=== PATIENT | female | born 1990 | race Hispanic/Latino ===

== ENCOUNTER 2022-07-18 12:03 | Inpatient (IN) | payer SELFPAY ==
[2022-07-18 14:39] LABS: #Basophils 0.1 thou/uL (0.0-0.2); #Eosinphils 0.2 thou/uL (0.0-0.7); #Lymphocytes 1.8 thou/uL (1.20-3.40); #Monocytes 0.3 thou/uL (0.11-0.59); #Neutrophils 9.4 thou/uL (1.40-6.50); %Basophils 0.5 % (0.0-1.0); %Eosinophils 1.9 % (0.0-10.0); %Lymphocytes 15.5 % (21.0-51.0); %Monocytes 2.6 % (0.0-10.0); %Neutrophils 79.6 % (42.0-75.0); Hemoglobin 6.7 g/dL (12.0-16.0); Mean Corpuscular HGB CONC 36.7 g/dL (32.0-36.0); Mean Corpuscular Hemoglobin 33.6 pg (27.0-31.0); Mean Corpuscular Volume 91.6 fl (78.0-98.0); Mean Platelet Volume 7.2 fL (7.4-10.4); Platelet Count 257 10x3/uL (130-400); RBC Distribution Width 11.2 % (11.5-14.5); Red Blood Cell (RBC) Count 1.99 mill/uL (4.20-5.40); White Blood Cell (WBC) Count 11.8 10x3/uL (4.8-10.8)
[2022-07-18 14:50] LABS: BHCG - Serum Negative (NEGATIVE); Pregs Control Background? CLEAR/WHITE (CLR/WHITE); Pregs Control Bar Appear? YES (CONTROL BAR)
[2022-07-18 14:59] LABS: ALT (SGPT) Less than 7 U/L (8-55); AST (SGOT) 8 U/L (5-34); Albumin 3.9 g/dL (3.5-5.0); Alkaline Phosphatase 79 U/L (40-110); Anion Gap 22 mmol/L (10-20); BUN (Urea Nitrogen) 101 mg/dL (7.0-18.7); Bilirubin, Total 0.4 mg/dL (0.2-1.2); Calc. Creatinine Clearance 0 mL/min (70-130); Calcium 7.8 mg/dL (7.8-10.44); Carbon Dioxide 13 mmol/L (22-29); Chloride 107 mmol/L (98-107); Estimated GFR 3; Globulin 3.3 g/dL (2.4-3.5); Glucose 95 mg/dL (70-105); Lipase 82 U/L (8-78); Potassium 5.5 mmol/L (3.5-5.1); Protein, Total 7.2 g/dL (6.0-8.3); Sodium 136 mmol/L (136-145)
[2022-07-18 18:54] LABS: Bilirubin Negative (Negative); Blood, Urine 3+ (Negative); Clarity Clear (Clear); Glucose, Urine (Dipstick) Normal (Negative); Ketone, Urine Negative (Negative); Leukocyte 25 Leu/uL (Negative); Nitrite Negative (Negative); Protein, Urine (Dipstick) 300 mg/dL (Neg-Trace); RBC/HPF Greater than 50 HPF (0-3); Squamous Epithelial 0-3 HPF (0-3); Urobilinogen Normal mg/dL (Less than 2)
[2022-07-18 18:55] LABS: Bacteria/HPF 1+ HPF (None Seen)
[2022-07-18 18:59] LABS: Amphetamine Not Detected (NotDetected); Barbiturates Screen Not Detected (NotDetected); Benzodiazepine Screen Not Detected (NotDetected); Cocaine Metabolite Screen Not Detected (NotDetected); Methadone Not Detected (NotDetected); Methamphetamine Not Detected (NotDetected); Opiate Screen Not Detected (NotDetected); Oxycodone Screen Not Detected (NotDetected); Phencyclidine (PCP) Not Detected (NotDetected); THC/Cannabinoid Screen Not Detected (NotDetected); Tricyclic Screen Not Detected (NotDetected)
[2022-07-18 21:20] VITALS: BMI 35.1
[2022-07-18] MEDS: Sodium Bicarbonate 150 MEQ in Dextrose 5% in Water 1,000 ML IV SCH (22:11)
[2022-07-18 22:14] LABS: #Basophils 0.1 thou/uL (0.0-0.2); #Eosinphils 0.2 thou/uL (0.0-0.7); #Lymphocytes 2.2 thou/uL (1.20-3.40); #Monocytes 0.4 thou/uL (0.11-0.59); #Neutrophils 6.8 thou/uL (1.40-6.50); %Basophils 0.7 % (0.0-1.0); %Lymphocytes 22.7 % (21.0-51.0); %Monocytes 4.6 % (0.0-10.0); %Neutrophils 70.1 % (42.0-75.0); Hemoglobin 5.9 g/dL (12.0-16.0); Mean Corpuscular HGB CONC 35.8 g/dL (32.0-36.0); Mean Corpuscular Volume 92.4 fl (78.0-98.0); Mean Platelet Volume 7.6 fL (7.4-10.4); Platelet Count 222 10x3/uL (130-400); RBC Distribution Width 11.4 % (11.5-14.5); Red Blood Cell (RBC) Count 1.77 mill/uL (4.20-5.40); White Blood Cell (WBC) Count 9.8 10x3/uL (4.8-10.8)
[2022-07-18 22:29] LABS: ALT (SGPT) 7 U/L (8-55); AST (SGOT) 7 U/L (5-34); Albumin 3.5 g/dL (3.5-5.0); Alkaline Phosphatase 70 U/L (40-110); Anion Gap 21 mmol/L (10-20); BUN (Urea Nitrogen) 98 mg/dL (7.0-18.7); Bilirubin, Total 0.5 mg/dL (0.2-1.2); Calc. Creatinine Clearance 7 mL/min (70-130); Calcium 7.6 mg/dL (7.8-10.44); Carbon Dioxide 13 mmol/L (22-29); Chloride 110 mmol/L (98-107); Estimated GFR 3; Glucose 83 mg/dL (70-105); Protein, Total 6.5 g/dL (6.0-8.3); Sodium 139 mmol/L (136-145)
[2022-07-18] MEDS ORDERED: NIFEdipine XL 60 MG TAB PO SCH (22:30)
[2022-07-18] MEDS ORDERED: Sodium Bicarb 50 MEQ/50 ML VIAL IVP SCH (23:00)
[2022-07-18 23:23] LABS: Creatinine, Urine 64.49 mg/dL (47-110)
[2022-07-19 06:58] LABS: #Eosinphils 0.3 thou/uL (0.0-0.7); #Lymphocytes 2.4 thou/uL (1.20-3.40); #Monocytes 0.5 thou/uL (0.11-0.59); #Neutrophils 5.9 thou/uL (1.40-6.50); %Lymphocytes 25.9 % (21.0-51.0); %Neutrophils 64.7 % (42.0-75.0); Hemoglobin 6.6 g/dL (12.0-16.0); Mean Corpuscular HGB CONC 33.9 g/dL (32.0-36.0); Mean Corpuscular Hemoglobin 30.6 pg (27.0-31.0); Mean Corpuscular Volume 90.3 fl (78.0-98.0); Mean Platelet Volume 7.5 fL (7.4-10.4); Platelet Count 225 10x3/uL (130-400); RBC Distribution Width 11.6 % (11.5-14.5); Red Blood Cell (RBC) Count 2.15 mill/uL (4.20-5.40)
[2022-07-19 07:01] LABS: INR-International Normal Ratio 1.2; Prothrombin Time 15.7 sec (12.0-14.7)
[2022-07-19 07:02] LABS: PTT 30.1 sec (22.9-36.1)
[2022-07-19 07:10] LABS: Albumin 3.4 g/dL (3.5-5.0); Anion Gap 22 mmol/L (10-20); BUN (Urea Nitrogen) 94 mg/dL (7.0-18.7); BUN/Creatinine Ratio 6.23; Calc. Creatinine Clearance 7 mL/min (70-130); Calcium 7.3 mg/dL (7.8-10.44); Carbon Dioxide 18 mmol/L (22-29); Chloride 105 mmol/L (98-107); Estimated GFR 3; Glucose 99 mg/dL (70-105); Phosphorus 8.1 mg/dL (2.3-4.7); Potassium 3.6 mmol/L (3.5-5.1); Sodium 141 mmol/L (136-145)
[2022-07-19] MEDS: NIFEdipine XL 60 MG TAB PO SCH (08:57)
[2022-07-19] MEDS: Famotidine/PF 20 mg/2ml Vial SLOW IVP SCH (08:57)
[2022-07-19 09:37] LABS: Iron 161 ug/dL (50-170); Iron Binding Capacity, Total 235 mcg/dL (265-497)
[2022-07-19] MEDS ORDERED: EPOETIN ALFA-EPBX (ESRD) 4,000 UNITS/ML VIAL SC SCH (17:00)
[2022-07-19] MEDS ORDERED: EPOETIN ALFA-EPBX (ESRD) 2,000 UNITS/ML VIAL SC SCH (17:15)
[2022-07-19] MEDS: Ondansetron PF 4 MG/2 ML Vial IVP PRN (21:31)
[2022-07-20] MEDS: Sodium Bicarbonate 150 MEQ in Dextrose 5% in Water 1,000 ML IV SCH (01:25)
[2022-07-20 07:05] LABS: #Basophils 0.1 thou/uL (0.0-0.2); #Eosinphils 0.4 thou/uL (0.0-0.7); #Lymphocytes 3.5 thou/uL (1.20-3.40); #Monocytes 0.5 thou/uL (0.11-0.59); #Neutrophils 7.9 thou/uL (1.40-6.50); %Basophils 0.6 % (0.0-1.0); %Eosinophils 3.5 % (0.0-10.0); %Lymphocytes 28.2 % (21.0-51.0); %Monocytes 3.9 % (0.0-10.0); %Neutrophils 63.9 % (42.0-75.0); Hemoglobin 9.9 g/dL (12.0-16.0); Mean Corpuscular HGB CONC 36.3 g/dL (32.0-36.0); Mean Corpuscular Hemoglobin 29.9 pg (27.0-31.0); Mean Corpuscular Volume 82.5 fl (78.0-98.0); Mean Platelet Volume 8.1 fL (7.4-10.4); Platelet Count 247 10x3/uL (130-400); RBC Distribution Width 20.1 % (11.5-14.5); White Blood Cell (WBC) Count 12.3 10x3/uL (4.8-10.8)
[2022-07-20 07:25] LABS: INR-International Normal Ratio 1.1; Prothrombin Time 14.2 sec (12.0-14.7)
[2022-07-20 07:26] LABS: PTT 27.8 sec (22.9-36.1)
[2022-07-20 07:30] LABS: Albumin 3.8 g/dL (3.5-5.0); Anion Gap 21 mmol/L (10-20); BUN (Urea Nitrogen) 86 mg/dL (7.0-18.7); BUN/Creatinine Ratio 5.78; Calc. Creatinine Clearance 7 mL/min (70-130); Calcium 7.3 mg/dL (7.8-10.44); Carbon Dioxide 24 mmol/L (22-29); Chloride 99 mmol/L (98-107); Estimated GFR 3; Glucose 97 mg/dL (70-105); Phosphorus 7.2 mg/dL (2.3-4.7); Potassium 3.6 mmol/L (3.5-5.1); Sodium 140 mmol/L (136-145)
[2022-07-20] MEDS: Sevelamer Carbonate 800 MG TAB PO SCH ×3 (08:25→16:34)
[2022-07-20] MEDS: Famotidine/PF 20 mg/2ml Vial SLOW IVP SCH (08:32)
[2022-07-20] MEDS: NIFEdipine XL 60 MG TAB PO SCH (08:32)
[2022-07-20] MEDS ORDERED: Carvedilol 6.25 MG TAB PO SCH (09:00)
[2022-07-20] MEDS: Calcium Acetate 667 MG CAP PO SCH ×2 (11:01→16:34)
[2022-07-20] MEDS: Ergocalciferol 1.25 MG(50,000 UNITS) CAP PO SCH (12:26)
[2022-07-20] MEDS: Lactated Ringer's 1,000 ML IV SCH ×3 (12:26→20:47)
[2022-07-20 12:34] LABS: 24 Hr Creatinine 808.85 mg/24 hr (710-1650); Creatinine, Urine 46.22 mg/dL (47-110)
[2022-07-20] MEDS: Carvedilol 6.25 MG TAB PO SCH (20:46)
[2022-07-21] MEDS ORDERED: Lidocaine 2% Viscous Solution 10 ML, Aluminum & Magnesium Hydroxide 30 ML SSW SCH (01:00)
[2022-07-21 07:05] LABS: #Basophils 0.1 thou/uL (0.0-0.2); #Eosinphils 0.5 thou/uL (0.0-0.7); #Lymphocytes 2.6 thou/uL (1.20-3.40); #Monocytes 0.6 thou/uL (0.11-0.59); #Neutrophils 6.8 thou/uL (1.40-6.50); %Basophils 0.6 % (0.0-1.0); %Eosinophils 4.7 % (0.0-10.0); %Lymphocytes 24.4 % (21.0-51.0); %Monocytes 5.4 % (0.0-10.0); %Neutrophils 64.8 % (42.0-75.0); Hemoglobin 8.7 g/dL (12.0-16.0); Mean Corpuscular HGB CONC 35.4 g/dL (32.0-36.0); Mean Corpuscular Hemoglobin 30.1 pg (27.0-31.0); Mean Corpuscular Volume 84.9 fl (78.0-98.0); Mean Platelet Volume 8.6 fL (7.4-10.4); Platelet Count 211 10x3/uL (130-400); RBC Distribution Width 19.7 % (11.5-14.5); White Blood Cell (WBC) Count 10.4 10x3/uL (4.8-10.8)
[2022-07-21 07:16] LABS: Albumin 3.2 g/dL (3.5-5.0); Anion Gap 20 mmol/L (10-20); BUN (Urea Nitrogen) 85 mg/dL (7.0-18.7); BUN/Creatinine Ratio 5.69; Calc. Creatinine Clearance 7 mL/min (70-130); Carbon Dioxide 22 mmol/L (22-29); Chloride 102 mmol/L (98-107); Estimated GFR 3; Glucose 85 mg/dL (70-105); Phosphorus 6.6 mg/dL (2.3-4.7); Potassium 3.7 mmol/L (3.5-5.1); Sodium 140 mmol/L (136-145)
[2022-07-21 07:32] LABS: Calcium 6.9 mg/dL (7.8-10.44); Critical Call Chemistry NUR.BME@0731
[2022-07-21] MEDS: Carvedilol 6.25 MG TAB PO SCH ×2 (08:38→20:11)
[2022-07-21] MEDS: Famotidine/PF 20 mg/2ml Vial SLOW IVP SCH (08:38)
[2022-07-21] MEDS: Calcium Acetate 667 MG CAP PO SCH ×3 (08:38→17:11)
[2022-07-21] MEDS: Sevelamer Carbonate 800 MG TAB PO SCH ×3 (08:38→17:11)
[2022-07-21] MEDS: Lactated Ringer's 1,000 ML IV SCH ×3 (08:38→17:52)
[2022-07-21] MEDS: NIFEdipine XL 90 MG TAB PO SCH (08:39)
[2022-07-21] MEDS ORDERED: Calcium Gluc 4.6 MEQ/10 ML (100 MG/ML) SLOW IVP SCH (09:22)
[2022-07-21] MEDS: Ondansetron PF 4 MG/2 ML Vial IVP PRN (09:44)
[2022-07-21 12:14] LABS: ANA Symphony (Qualitative) Negative (Negative); ANA Symphony (Quantitative) 0.3 Ratio (< 0.7 Negative); dsDNA IgG Antibody 1.3 IU/mL (<10 Negative)
[2022-07-21] MEDS: Calcium Carbonate 500 MG ChewTAB PO SCH ×2 (17:11→20:11)
[2022-07-21] MEDS: EPOETIN ALFA-EPBX (ESRD) 10,000 UNITS/ML VIAL SC SCH (17:12)
[2022-07-22] MEDS: Lactated Ringer's 1,000 ML IV SCH ×4 (00:04→20:37)
[2022-07-22] MEDS: Ondansetron PF 4 MG/2 ML Vial IVP PRN (05:48)
[2022-07-22 06:29] LABS: Albumin 3.3 g/dL (3.5-5.0); Anion Gap 17 mmol/L (10-20); BUN (Urea Nitrogen) 84 mg/dL (7.0-18.7); BUN/Creatinine Ratio 6.05; Calc. Creatinine Clearance 8 mL/min (70-130); Calcium 7.9 mg/dL (7.8-10.44); Carbon Dioxide 24 mmol/L (22-29); Chloride 103 mmol/L (98-107); Estimated GFR 3; Glucose 99 mg/dL (70-105); Phosphorus 5.5 mg/dL (2.3-4.7); Potassium 4.1 mmol/L (3.5-5.1); Sodium 140 mmol/L (136-145)
[2022-07-22 07:07] LABS: #Basophils 0.1 thou/uL (0.0-0.2); #Eosinphils 0.3 thou/uL (0.0-0.7); #Lymphocytes 3.7 thou/uL (1.20-3.40); #Monocytes 0.4 thou/uL (0.11-0.59); #Neutrophils 11.2 thou/uL (1.40-6.50); %Basophils 0.6 % (0.0-1.0); %Eosinophils 2.1 % (0.0-10.0); %Lymphocytes 23.4 % (21.0-51.0); %Monocytes 2.8 % (0.0-10.0); %Neutrophils 71.1 % (42.0-75.0); Hemoglobin 10.4 g/dL (12.0-16.0); Mean Corpuscular HGB CONC 33.8 g/dL (32.0-36.0); Mean Corpuscular Hemoglobin 29.1 pg (27.0-31.0); Mean Corpuscular Volume 85.9 fl (78.0-98.0); Mean Platelet Volume 8.7 fL (7.4-10.4); Platelet Count 276 10x3/uL (130-400); RBC Distribution Width 19.5 % (11.5-14.5); Red Blood Cell (RBC) Count 3.56 mill/uL (4.20-5.40); White Blood Cell (WBC) Count 15.7 10x3/uL (4.8-10.8)
[2022-07-22] MEDS: Calcium Acetate 667 MG CAP PO SCH ×3 (08:22→17:57)
[2022-07-22] MEDS: Famotidine/PF 20 mg/2ml Vial SLOW IVP SCH (08:22)
[2022-07-22] MEDS: Carvedilol 6.25 MG TAB PO SCH ×2 (08:22→20:30)
[2022-07-22] MEDS: Calcium Carbonate 500 MG ChewTAB PO SCH ×3 (08:22→20:35)
[2022-07-22] MEDS: NIFEdipine XL 90 MG TAB PO SCH (08:23)
[2022-07-22] MEDS: Sevelamer Carbonate 800 MG TAB PO SCH ×3 (08:23→17:57)
[2022-07-22] MEDS ORDERED: Carvedilol 25 MG TAB PO SCH (13:45)
[2022-07-22] MEDS ORDERED: Mag-Al 1200 mg/1200 mg/30 ML UDCUP PO PRN (16:21)
[2022-07-22] MEDS ORDERED: Lidocaine 2% Viscous Solution 10 ML, Aluminum & Magnesium Hydroxide 30 ML SSW SCH (22:00)
[2022-07-23] MEDS: Lactated Ringer's 1,000 ML IV SCH ×4 (05:55→20:29)
[2022-07-23] MEDS: Carvedilol 6.25 MG TAB PO SCH (05:56)
[2022-07-23] MEDS: Calcium Carbonate 500 MG ChewTAB PO SCH ×3 (09:08→20:35)
[2022-07-23] MEDS: Calcium Acetate 667 MG CAP PO SCH ×3 (09:09→17:51)
[2022-07-23] MEDS: NIFEdipine XL 60 MG TAB PO SCH ×2 (09:09→20:35)
[2022-07-23] MEDS: Sevelamer Carbonate 800 MG TAB PO SCH ×3 (09:10→17:51)
[2022-07-23] MEDS ORDERED: Labetalol HCl 100 MG TAB PO SCH (09:21)
[2022-07-23] MEDS ORDERED: hydrALAZINE 20 MG/ML VIAL SLOW IVP SCH (09:30)
[2022-07-23] MEDS ORDERED: hydrALAZINE 20 MG/ML VIAL SLOW IVP PRN (12:02)
[2022-07-23 17:17] LABS: Albumin 3.3 g/dL (3.5-5.0); Anion Gap 19 mmol/L (10-20); BUN (Urea Nitrogen) 80 mg/dL (7.0-18.7); Calc. Creatinine Clearance 8 mL/min (70-130); Calcium 8.2 mg/dL (7.8-10.44); Carbon Dioxide 21 mmol/L (22-29); Chloride 104 mmol/L (98-107); Estimated GFR 3; Glucose 96 mg/dL (70-105); Potassium 4.1 mmol/L (3.5-5.1); Sodium 140 mmol/L (136-145)
[2022-07-23] MEDS: Labetalol HCl 100 MG TAB PO SCH (20:35)
[2022-07-23] MEDS ORDERED: Dicyclomine 10 MG CAP PO SCH (21:15)
[2022-07-24] MEDS: Lactated Ringer's 1,000 ML IV SCH ×7 (02:20→20:35)
[2022-07-24 06:21] LABS: #Basophils 0.1 thou/uL (0.0-0.2); #Eosinphils 0.3 thou/uL (0.0-0.7); #Lymphocytes 2.5 thou/uL (1.20-3.40); #Monocytes 0.7 thou/uL (0.11-0.59); #Neutrophils 7.8 thou/uL (1.40-6.50); %Basophils 0.5 % (0.0-1.0); %Eosinophils 2.7 % (0.0-10.0); %Monocytes 6.1 % (0.0-10.0); %Neutrophils 68.8 % (42.0-75.0); Hemoglobin 9.3 g/dL (12.0-16.0); Mean Corpuscular HGB CONC 34.4 g/dL (32.0-36.0); Mean Corpuscular Hemoglobin 30.1 pg (27.0-31.0); Mean Corpuscular Volume 87.4 fl (78.0-98.0); Mean Platelet Volume 8.7 fL (7.4-10.4); Platelet Count 214 10x3/uL (130-400); RBC Distribution Width 19.5 % (11.5-14.5); Red Blood Cell (RBC) Count 3.09 mill/uL (4.20-5.40); White Blood Cell (WBC) Count 11.3 10x3/uL (4.8-10.8)
[2022-07-24 06:36] LABS: Anion Gap 18 mmol/L (10-20); BUN (Urea Nitrogen) 76 mg/dL (7.0-18.7); Calc. Creatinine Clearance 8 mL/min (70-130); Calcium 7.7 mg/dL (7.8-10.44); Carbon Dioxide 20 mmol/L (22-29); Chloride 105 mmol/L (98-107); Estimated GFR 4; Glucose 79 mg/dL (70-105); Potassium 3.8 mmol/L (3.5-5.1); Sodium 139 mmol/L (136-145)
[2022-07-24] MEDS: Calcium Carbonate 500 MG ChewTAB PO SCH ×3 (09:25→20:34)
[2022-07-24] MEDS: Calcitriol 0.25 MCG CAP PO SCH (09:25)
[2022-07-24] MEDS: Calcium Acetate 667 MG CAP PO SCH ×3 (09:25→16:54)
[2022-07-24] MEDS: NIFEdipine XL 60 MG TAB PO SCH ×2 (09:26→20:34)
[2022-07-24] MEDS: Labetalol HCl 100 MG TAB PO SCH ×2 (09:27→20:35)
[2022-07-24] MEDS: Sodium Bicarbonate Tab 325 MG TAB PO SCH ×3 (09:27→20:35)
[2022-07-24] MEDS: Sevelamer Carbonate 800 MG TAB PO SCH ×3 (09:27→16:54)
[2022-07-24] MEDS: Ondansetron PF 4 MG/2 ML Vial IVP PRN ×2 (10:07→17:04)
[2022-07-24] MEDS ORDERED: Metoclopramide HCl 10 MG/2 ML VIAL IVP PRN (11:24)
[2022-07-24] MEDS: Morphine 2 MG/ML VIAL SLOW IVP PRN ×2 (12:25→17:05)
[2022-07-25 06:52] LABS: #Eosinphils 0.3 thou/uL (0.0-0.7); #Monocytes 0.7 thou/uL (0.11-0.59); #Neutrophils 7.2 thou/uL (1.40-6.50); %Basophils 0.4 % (0.0-1.0); %Eosinophils 2.6 % (0.0-10.0); %Lymphocytes 26.6 % (21.0-51.0); %Monocytes 6.2 % (0.0-10.0); %Neutrophils 64.2 % (42.0-75.0); Hemoglobin 8.8 g/dL (12.0-16.0); Mean Corpuscular HGB CONC 34.7 g/dL (32.0-36.0); Mean Corpuscular Hemoglobin 30.3 pg (27.0-31.0); Mean Corpuscular Volume 87.4 fl (78.0-98.0); Mean Platelet Volume 8.3 fL (7.4-10.4); Platelet Count 213 10x3/uL (130-400); RBC Distribution Width 19.4 % (11.5-14.5); White Blood Cell (WBC) Count 11.2 10x3/uL (4.8-10.8)
[2022-07-25 08:39] LABS: Albumin 2.9 g/dL (3.5-5.0); Anion Gap 19 mmol/L (10-20); BUN (Urea Nitrogen) 72 mg/dL (7.0-18.7); BUN/Creatinine Ratio 5.46; Calc. Creatinine Clearance 8 mL/min (70-130); Calcium 7.8 mg/dL (7.8-10.44); Carbon Dioxide 18 mmol/L (22-29); Chloride 105 mmol/L (98-107); Estimated GFR 3; Glucose 92 mg/dL (70-105); Phosphorus 6.6 mg/dL (2.3-4.7); Potassium 3.8 mmol/L (3.5-5.1); Sodium 138 mmol/L (136-145)
[2022-07-25] MEDS ORDERED: Sodium Bicarbonate 2.5 MEQ/5 ML VIAL ONE (09:50)
[2022-07-25] MEDS ORDERED: Lidocaine 1% PF 5 ML VIAL ONE (09:50)
[2022-07-25] MEDS: Calcitriol 0.25 MCG CAP PO SCH (09:53)
[2022-07-25] MEDS: Lactated Ringer's 1,000 ML IV SCH ×2 (09:53→20:41)
[2022-07-25] MEDS: Calcium Acetate 667 MG CAP PO SCH ×3 (09:53→16:28)
[2022-07-25] MEDS: NIFEdipine XL 60 MG TAB PO SCH ×2 (09:53→20:39)
[2022-07-25] MEDS: Calcium Carbonate 500 MG ChewTAB PO SCH ×3 (09:53→20:38)
[2022-07-25] MEDS: Sodium Bicarbonate Tab 325 MG TAB PO SCH ×3 (09:54→20:38)
[2022-07-25] MEDS: Labetalol HCl 100 MG TAB PO SCH ×2 (09:54→20:39)
[2022-07-26 06:22] LABS: Albumin 2.9 g/dL (3.5-5.0); Anion Gap 15 mmol/L (10-20); BUN (Urea Nitrogen) 70 mg/dL (7.0-18.7); BUN/Creatinine Ratio 5.18; Calc. Creatinine Clearance 8 mL/min (70-130); Calcium 7.9 mg/dL (7.8-10.44); Carbon Dioxide 22 mmol/L (22-29); Chloride 105 mmol/L (98-107); Estimated GFR 3; Glucose 92 mg/dL (70-105); Phosphorus 6.3 mg/dL (2.3-4.7); Sodium 138 mmol/L (136-145)
[2022-07-26] MEDS: Calcium Acetate 667 MG CAP PO SCH ×3 (09:31→18:01)
[2022-07-26] MEDS: NIFEdipine XL 60 MG TAB PO SCH ×2 (09:31→20:38)
[2022-07-26] MEDS: Sodium Bicarbonate Tab 325 MG TAB PO SCH ×3 (09:31→20:38)
[2022-07-26] MEDS: Labetalol HCl 100 MG TAB PO SCH ×2 (09:31→20:37)
[2022-07-26] MEDS: Albumin 25% 25 GM/100 ML BOT IVPB SCH ×3 (09:31→18:00)
[2022-07-26] MEDS: Calcitriol 0.25 MCG CAP PO SCH (09:31)
[2022-07-26] MEDS: Calcium Carbonate 500 MG ChewTAB PO SCH ×3 (09:35→20:37)
[2022-07-26] MEDS: Lactated Ringer's 1,000 ML IV SCH (09:35)
[2022-07-27] MEDS: Albumin 25% 25 GM/100 ML BOT IVPB SCH ×3 (00:58→05:39)
[2022-07-27 06:48] LABS: #Eosinphils 0.4 thou/uL (0.0-0.7); #Monocytes 0.5 thou/uL (0.11-0.59); #Neutrophils 5.7 thou/uL (1.40-6.50); %Basophils 0.2 % (0.0-1.0); %Eosinophils 5.1 % (0.0-10.0); %Lymphocytes 19.6 % (21.0-51.0); %Neutrophils 68.9 % (42.0-75.0); Hemoglobin 6.5 g/dL (12.0-16.0); Mean Corpuscular HGB CONC 32.2 g/dL (32.0-36.0); Mean Corpuscular Hemoglobin 28.3 pg (27.0-31.0); Mean Corpuscular Volume 87.8 fl (78.0-98.0); Mean Platelet Volume 10.3 fL (7.4-10.4); Platelet Count 171 10x3/uL (130-400); RBC Distribution Width 19.9 % (11.5-14.5); White Blood Cell (WBC) Count 8.4 10x3/uL (4.8-10.8)
[2022-07-27 06:52] LABS: Albumin 3.8 g/dL (3.5-5.0); Anion Gap 16 mmol/L (10-20); BUN (Urea Nitrogen) 67 mg/dL (7.0-18.7); BUN/Creatinine Ratio 4.94; Calc. Creatinine Clearance 8 mL/min (70-130); Calcium 7.8 mg/dL (7.8-10.44); Carbon Dioxide 21 mmol/L (22-29); Chloride 103 mmol/L (98-107); Estimated GFR 3; Glucose 91 mg/dL (70-105); Phosphorus 5.8 mg/dL (2.3-4.7); Sodium 136 mmol/L (136-145)
[2022-07-27] MEDS: Calcium Acetate 667 MG CAP PO SCH ×3 (09:08→16:49)
[2022-07-27] MEDS: Labetalol HCl 100 MG TAB PO SCH ×2 (09:08→21:50)
[2022-07-27] MEDS: Sodium Bicarbonate Tab 325 MG TAB PO SCH ×3 (09:08→21:49)
[2022-07-27] MEDS: Calcitriol 0.25 MCG CAP PO SCH (09:08)
[2022-07-27] MEDS: NIFEdipine XL 60 MG TAB PO SCH ×2 (09:09→21:50)
[2022-07-27] MEDS: Calcium Carbonate 500 MG ChewTAB PO SCH ×3 (09:09→22:14)
[2022-07-27] MEDS: Ergocalciferol 1.25 MG(50,000 UNITS) CAP PO SCH (09:30)
[2022-07-27] MEDS ORDERED: Metoclopramide HCl 10 MG/2 ML VIAL IVP PRN (10:13)
[2022-07-27] MEDS ORDERED: Iron, Sodium Ferric Gluconate 250 MG in Sodium Chloride 0.9% 250 ML 250 ML IVPB SCH (10:15)
[2022-07-27] MEDS ORDERED: Empagliflozin 10 MG TAB PO SCH (18:00)
[2022-07-27] MEDS ORDERED: predniSONE 50 MG TAB PO SCH (18:00)
[2022-07-28 06:30] LABS: Albumin 3.9 g/dL (3.5-5.0); Anion Gap 18 mmol/L (10-20); BUN (Urea Nitrogen) 71 mg/dL (7.0-18.7); BUN/Creatinine Ratio 5.07; Calc. Creatinine Clearance 8 mL/min (70-130); Calcium 8.5 mg/dL (7.8-10.44); Carbon Dioxide 20 mmol/L (22-29); Chloride 103 mmol/L (98-107); Estimated GFR 3; Glucose 125 mg/dL (70-105); Phosphorus 6.5 mg/dL (2.3-4.7); Potassium 4.9 mmol/L (3.5-5.1); Sodium 136 mmol/L (136-145)
[2022-07-28 07:25] LABS: Hemoglobin 7.7 g/dL (12.0-16.0); Mean Corpuscular HGB CONC 32.5 g/dL (32.0-36.0); Mean Corpuscular Hemoglobin 28.7 pg (27.0-31.0); Mean Corpuscular Volume 88.4 fl (78.0-98.0); Mean Platelet Volume 10.8 fL (7.4-10.4); Platelet Count 219 10x3/uL (130-400); RBC Distribution Width 19.3 % (11.5-14.5); Red Blood Cell (RBC) Count 2.68 mill/uL (4.20-5.40); White Blood Cell (WBC) Count 8.2 10x3/uL (4.8-10.8)
[2022-07-28] MEDS: NIFEdipine XL 60 MG TAB PO SCH ×2 (09:12→21:00)
[2022-07-28] MEDS: Calcium Acetate 667 MG CAP PO SCH ×3 (09:13→16:36)
[2022-07-28] MEDS: Labetalol HCl 100 MG TAB PO SCH ×2 (09:13→20:59)
[2022-07-28] MEDS: Sodium Bicarbonate Tab 325 MG TAB PO SCH ×3 (09:13→21:00)
[2022-07-28] MEDS: EPOETIN ALFA-EPBX (ESRD) 10,000 UNITS/ML VIAL SC SCH (09:14)
[2022-07-28] MEDS: Calcitriol 0.25 MCG CAP PO SCH (09:14)
[2022-07-28] MEDS: Calcium Carbonate 500 MG ChewTAB PO SCH ×3 (09:14→20:59)
[2022-07-28] MEDS: Torsemide 20 MG TAB PO SCH (09:34)
[2022-07-28] MEDS ORDERED: predniSONE 50 MG TAB PO SCH (09:45)
[2022-07-28] MEDS ORDERED: Empagliflozin 10 MG TAB PO SCH (09:45)
[2022-07-29 06:20] LABS: Hemoglobin 6.8 g/dL (12.0-16.0); Mean Corpuscular HGB CONC 31.2 g/dL (32.0-36.0); Mean Corpuscular Hemoglobin 28.1 pg (27.0-31.0); Mean Corpuscular Volume 90.1 fl (78.0-98.0); Mean Platelet Volume 10.2 fL (7.4-10.4); Platelet Count 203 10x3/uL (130-400); RBC Distribution Width 19.3 % (11.5-14.5); Red Blood Cell (RBC) Count 2.42 mill/uL (4.20-5.40)
[2022-07-29 06:32] LABS: Albumin 3.8 g/dL (3.5-5.0); Anion Gap 17 mmol/L (10-20); BUN (Urea Nitrogen) 84 mg/dL (7.0-18.7); BUN/Creatinine Ratio 5.79; Calc. Creatinine Clearance 7 mL/min (70-130); Calcium 8.7 mg/dL (7.8-10.44); Carbon Dioxide 21 mmol/L (22-29); Chloride 101 mmol/L (98-107); Estimated GFR 3; Glucose 111 mg/dL (70-105); Phosphorus 6.1 mg/dL (2.3-4.7); Potassium 4.5 mmol/L (3.5-5.1); Sodium 134 mmol/L (136-145)
[2022-07-29] MEDS: Calcium Carbonate 500 MG ChewTAB PO SCH (09:56)
[2022-07-29] MEDS: NIFEdipine XL 60 MG TAB PO SCH (09:57)
[2022-07-29] MEDS: Sodium Bicarbonate Tab 325 MG TAB PO SCH (09:58)
[2022-07-29] MEDS: Labetalol HCl 100 MG TAB PO SCH (09:58)
[2022-07-29] MEDS: Calcitriol 0.25 MCG CAP PO SCH (09:58)
[2022-07-29] MEDS: Calcium Acetate 667 MG CAP PO SCH ×2 (09:58→12:29)
[2022-07-29] MEDS: Torsemide 20 MG TAB PO SCH (09:59)
[2022-07-29] MEDS ORDERED: Fish Oil 1,000 MG CAP PO SCH (12:30)
[2022-07-29] MEDS ORDERED: predniSONE 20 MG TAB PO SCH (12:30)
[2022-07-29] MEDS ORDERED: Empagliflozin 10 MG TAB PO SCH (12:30)
[2022-07-29 15:56] VITALS: BP 137/87; TEMP 98.3
[2022-07-30] MEDS ORDERED: Fish Oil 1,000 MG CAP PO SCH (09:00)
== END 2022-07-29 17:33 | disposition home or self-care (01) | DRG 699 ==
LOC: ERS 12:03 → T4-A 19:35
PROVIDERS: ADMIT Hospitalist; ATTEND Hospitalist
PROC: 30233N1 Transfusion of Nonautologous Red Blood Cells into Peripheral Vein, Percutaneous Approach (ICD-10-PCS; principal; 2022-07-18)
PROC: 0TB13ZX Excision of Left Kidney, Percutaneous Approach, Diagnostic (ICD-10-PCS; 2022-07-25)
DX: N02.8 Recurrent and persistent hematuria with other morphologic changes (principal); E87.20 Acidosis, unspecified; I16.1 Hypertensive emergency; N17.9 Acute kidney failure, unspecified; E87.5 Hyperkalemia; D63.1 Anemia in chronic kidney disease; N25.81 Secondary hyperparathyroidism of renal origin; N18.5 Chronic kidney disease, stage 5; E55.9 Vitamin D deficiency, unspecified; I15.0 Renovascular hypertension
CPT/HCPCS: 36415; 36416; 36430; 50200; 70450; 74018; 74176; 76770; 77002; 80048; 80053; 80069; 80306; 81003; 81015; 82274; 82306; 82550; 82570; 82728; 83540; 83550; 83690; 83970; 84156; 84300; 84703; 85025; 85027; 85610; 85652; 85730; 86038; 86140; 86225; 86850; 86900; 86901; 93005; 96360; J0360; J0612; J2272; J2405; J2765; J2916; J7050; J7070; J7120; J7512; P9016; P9047; Q5105; S0028

== ENCOUNTER 2022-09-23 09:32 | Emergency (ER) | payer SELFPAY ==
[2022-09-23 10:00] LABS: #Basophils 0.1 thou/uL (0.0-0.2); #Eosinphils 0.9 thou/uL (0.0-0.7); #Monocytes 0.5 thou/uL (0.11-0.59); #Neutrophils 5.6 thou/uL (1.40-6.50); %Basophils 0.6 % (0.0-1.0); %Eosinophils 10.5 % (0.0-10.0); %Monocytes 5.9 % (0.0-10.0); %Neutrophils 65.8 % (42.0-75.0); Hemoglobin 8.7 g/dL (12.0-16.0); Mean Corpuscular HGB CONC 33.2 g/dL (32.0-36.0); Mean Corpuscular Hemoglobin 29.9 pg (27.0-31.0); Mean Platelet Volume 9.3 fL (7.4-10.4); Platelet Count 171 10x3/uL (130-400); RBC Distribution Width 15.4 % (11.5-14.5); Red Blood Cell (RBC) Count 2.91 mill/uL (4.20-5.40); White Blood Cell (WBC) Count 8.5 10x3/uL (4.8-10.8)
[2022-09-23 10:29] LABS: ALT (SGPT) 24 U/L (8-55); AST (SGOT) 30 U/L (5-34); Albumin 3.4 g/dL (3.5-5.0); Alkaline Phosphatase 81 U/L (40-110); Anion Gap 16 mmol/L (10-20); BUN (Urea Nitrogen) 47 mg/dL (7.0-18.7); Bilirubin, Total 0.4 mg/dL (0.2-1.2); Calc. Creatinine Clearance 0 mL/min (70-130); Carbon Dioxide 26 mmol/L (22-29); Chloride 102 mmol/L (98-107); Estimated GFR 4; Globulin 2.9 g/dL (2.4-3.5); Glucose 94 mg/dL (70-105); Potassium 4.8 mmol/L (3.5-5.1); Protein, Total 6.3 g/dL (6.0-8.3); Sodium 139 mmol/L (136-145)
== END 2022-09-23 11:44 | disposition home or self-care (01) ==
LOC: ERS 09:32
DX: I12.0 Hypertensive chronic kidney disease with stage 5 chronic kidney disease or end stage renal disease (principal); N18.6 End stage renal disease; Z99.2 Dependence on renal dialysis
CPT/HCPCS: 36415; 80053; 85025; 99283

== ENCOUNTER 2022-09-23 23:56 | Inpatient (IN) | payer MEDICAID, SELFPAY ==
[2022-09-24] MEDS ORDERED: LORazepam 2 MG/ML SYR.(CARPUJECT) ONE (00:29)
[2022-09-24] MEDS ORDERED: levETIRAcetam 500 MG/5 ML VIAL ONE (00:35)
[2022-09-24] MEDS ORDERED: niCARdipine 25 MG/10 ML SDV ONE (00:50)
[2022-09-24 00:59] LABS: #Eosinphils 0.2 thou/uL (0.0-0.7); #Monocytes 0.3 thou/uL (0.11-0.59); #Neutrophils 8.9 thou/uL (1.40-6.50); %Basophils 0.4 % (0.0-1.0); %Lymphocytes 10.2 % (21.0-51.0); %Monocytes 2.8 % (0.0-10.0); %Neutrophils 84.2 % (42.0-75.0); Hemoglobin 8.7 g/dL (12.0-16.0); Mean Corpuscular Hemoglobin 30.1 pg (27.0-31.0); Mean Corpuscular Volume 91.3 fl (78.0-98.0); Mean Platelet Volume 9.2 fL (7.4-10.4); Platelet Count 183 10x3/uL (130-400); RBC Distribution Width 15.5 % (11.5-14.5); Red Blood Cell (RBC) Count 2.89 mill/uL (4.20-5.40); White Blood Cell (WBC) Count 10.6 10x3/uL (4.8-10.8)
[2022-09-24 01:22] LABS: ALT (SGPT) 22 U/L (8-55); AST (SGOT) 22 U/L (5-34); Albumin 3.5 g/dL (3.5-5.0); Alkaline Phosphatase 93 U/L (40-110); Anion Gap 24 mmol/L (10-20); BUN (Urea Nitrogen) 50 mg/dL (7.0-18.7); Bilirubin, Total 0.4 mg/dL (0.2-1.2); Calc. Creatinine Clearance 0 mL/min (70-130); Calcium 9.2 mg/dL (7.8-10.44); Carbon Dioxide 18 mmol/L (22-29); Chloride 102 mmol/L (98-107); Estimated GFR 3; Globulin 3.2 g/dL (2.4-3.5); Glucose 114 mg/dL (70-105); Potassium 4.7 mmol/L (3.5-5.1); Protein, Total 6.7 g/dL (6.0-8.3); Sodium 139 mmol/L (136-145)
[2022-09-24] MEDS ORDERED: Ondansetron PF 4 MG/2 ML Vial IVP PRN (03:25)
[2022-09-24] MEDS ORDERED: Acetaminophen 325 MG TAB PO PRN (03:25)
[2022-09-24] MEDS ORDERED: Ondansetron ODT 4 MG TAB PO PRN (03:25)
[2022-09-24] MEDS ORDERED: Acetaminophen 650 MG Suppository PR PRN (03:25)
[2022-09-24] MEDS ORDERED: hydrALAZINE 20 MG/ML VIAL SLOW IVP PRN ×2 (03:27→04:16)
[2022-09-24] MEDS ORDERED: Labetalol HCl 100 MG/20 ML VIAL SLOW IVP PRN ×2 (03:40→04:16)
[2022-09-24] MEDS ORDERED: Lorazepam 2 MG/ML VIAL SLOW IVP PRN (03:45)
[2022-09-24 03:54] LABS: #Monocytes 0.3 thou/uL (0.11-0.59); %Basophils 0.3 % (0.0-1.0); %Eosinophils 0.4 % (0.0-10.0); %Lymphocytes 7.8 % (21.0-51.0); %Monocytes 2.7 % (0.0-10.0); %Neutrophils 88.4 % (42.0-75.0); Hemoglobin 9.2 g/dL (12.0-16.0); Mean Corpuscular HGB CONC 34.1 g/dL (32.0-36.0); Mean Corpuscular Hemoglobin 30.7 pg (27.0-31.0); Platelet Count 178 10x3/uL (130-400); RBC Distribution Width 15.4 % (11.5-14.5); White Blood Cell (WBC) Count 11.4 10x3/uL (4.8-10.8)
[2022-09-24 04:15] LABS: Lactic Acid 0.7 mmol/L (0.5-2.2)
[2022-09-24] MEDS ORDERED: niCARdipine 25 MG in Sodium Chloride 0.9% 250 ML 250 ML IVPB PRN (04:15)
[2022-09-24 04:19] LABS: Anion Gap 18 mmol/L (10-20); BUN (Urea Nitrogen) 51 mg/dL (7.0-18.7); Calc. Creatinine Clearance 0 mL/min (70-130); Carbon Dioxide 23 mmol/L (22-29); Chloride 103 mmol/L (98-107); Estimated GFR 3; Glucose 99 mg/dL (70-105); Magnesium 2.5 mg/dL (1.6-2.6); Potassium 5.3 mmol/L (3.5-5.1); Sodium 139 mmol/L (136-145)
[2022-09-24 04:26] LABS: BHCG - Serum Negative (NEGATIVE); Pregs Control Background? CLEAR/WHITE (CLR/WHITE); Pregs Control Bar Appear? YES (CONTROL BAR)
[2022-09-24 07:33] LABS: CK (CPK) 68 U/L (29-168); Magnesium 2.4 mg/dL (1.6-2.6)
[2022-09-24] MEDS ORDERED: Heparin 10,000 UNITS/ 10 ML VIAL ONE (08:46)
[2022-09-24] MEDS ORDERED: levETIRAcetam in NS 500 MG in Premix Bag 1 BAG IVPB SCH (09:00)
[2022-09-24] MEDS ORDERED: levETIRAcetam 500 MG/5 ML VIAL SLOW IVP SCH (09:00)
[2022-09-24] MEDS: NIFEdipine XL 60 MG TAB PO SCH ×2 (09:32→21:46)
[2022-09-24] MEDS: Metoprolol Tartrate 100 MG TAB PO SCH ×2 (09:32→21:46)
[2022-09-24] MEDS: Pantoprazole 40 MG VIAL IVP SCH (09:32)
[2022-09-24] MEDS ORDERED: Lice Shampoo 120 ML BOT TOP SCH ×2 (10:00→10:30)
[2022-09-24 12:54] LABS: HBSAB Concentration Less than 8.00 mIU/mL; Hep B Core Total Ab Non-Reactive (NonReactive); Hep B Surf AB Non-Reactive (NonReactive); Hep B Surf Ag Non-Reactive S/CO (NonReactive); Hep C IgG Ab Non-Reactive S/CO (NonReactive); Hep C Index 0.09 S/CO (0-0.79)
[2022-09-24] MEDS ORDERED: levETIRAcetam 500 MG TAB PO SCH (21:00)
[2022-09-25 05:41] LABS: #Basophils 0.1 thou/uL (0.0-0.2); #Eosinphils 0.8 thou/uL (0.0-0.7); #Monocytes 0.6 thou/uL (0.11-0.59); #Neutrophils 4.5 thou/uL (1.40-6.50); %Basophils 0.7 % (0.0-1.0); %Eosinophils 10.2 % (0.0-10.0); Hemoglobin 8.8 g/dL (12.0-16.0); Mean Corpuscular HGB CONC 32.5 g/dL (32.0-36.0); Mean Corpuscular Hemoglobin 30.1 pg (27.0-31.0); Mean Corpuscular Volume 92.8 fl (78.0-98.0); Mean Platelet Volume 9.1 fL (7.4-10.4); Platelet Count 203 10x3/uL (130-400); RBC Distribution Width 15.3 % (11.5-14.5); Red Blood Cell (RBC) Count 2.92 mill/uL (4.20-5.40); White Blood Cell (WBC) Count 8.2 10x3/uL (4.8-10.8)
[2022-09-25 06:06] LABS: Anion Gap 15 mmol/L (10-20); BUN (Urea Nitrogen) 21 mg/dL (7.0-18.7); Calc. Creatinine Clearance 11 mL/min (70-130); Calcium 7.8 mg/dL (7.8-10.44); Carbon Dioxide 24 mmol/L (22-29); Chloride 100 mmol/L (98-107); Estimated GFR 6; Glucose 78 mg/dL (70-105); Potassium 3.7 mmol/L (3.5-5.1); Sodium 135 mmol/L (136-145)
[2022-09-25 07:25] VITALS: BMI 29.5
[2022-09-25 07:51] LABS: Amphetamine Not Detected (NotDetected); Benzodiazepine Screen Not Detected (NotDetected); Cocaine Metabolite Screen Not Detected (NotDetected); Methadone Not Detected (NotDetected); Methamphetamine Not Detected (NotDetected); Opiate Screen Not Detected (NotDetected); Phencyclidine (PCP) Not Detected (NotDetected); THC/Cannabinoid Screen Not Detected (NotDetected); Tricyclic Screen Not Detected (NotDetected)
[2022-09-25 08:04] LABS: Barbiturates Screen Not Detected (NotDetected); Oxycodone Screen Not Detected (NotDetected)
[2022-09-25] MEDS: Pantoprazole 40 MG VIAL IVP SCH (08:17)
[2022-09-25] MEDS: Metoprolol Tartrate 100 MG TAB PO SCH ×2 (08:17→20:49)
[2022-09-25] MEDS: NIFEdipine XL 60 MG TAB PO SCH ×2 (08:17→20:49)
[2022-09-25] MEDS ORDERED: Epoetin (ESRD) 10,000 UNITS/ML VIAL SC SCH (12:00)
[2022-09-25] MEDS: Ferrous Sulfate 325 MG TAB PO SCH (16:14)
[2022-09-25] MEDS: levETIRAcetam 500 MG TAB PO SCH (20:49)
[2022-09-26] MEDS: Calcitriol 0.25 MCG CAP PO SCH (12:35)
[2022-09-26] MEDS: Ferrous Sulfate 325 MG TAB PO SCH ×2 (12:36→17:56)
[2022-09-26] MEDS: NIFEdipine XL 60 MG TAB PO SCH ×2 (12:36→20:27)
[2022-09-26] MEDS: Metoprolol Tartrate 100 MG TAB PO SCH ×2 (12:36→20:27)
[2022-09-26] MEDS: levETIRAcetam 500 MG TAB PO SCH (20:27)
[2022-09-27] MEDS: Calcitriol 0.25 MCG CAP PO SCH (08:17)
[2022-09-27] MEDS: Metoprolol Tartrate 100 MG TAB PO SCH ×2 (08:18→21:06)
[2022-09-27] MEDS: NIFEdipine XL 60 MG TAB PO SCH ×2 (08:18→21:06)
[2022-09-27] MEDS: Ferrous Sulfate 325 MG TAB PO SCH ×2 (08:18→16:09)
[2022-09-27] MEDS: levETIRAcetam 500 MG TAB PO SCH (21:06)
[2022-09-28] MEDS ORDERED: Heparin 10,000 UNITS/ 10 ML VIAL ONE (08:29)
[2022-09-28 08:40] VITALS: BP 127/90; TEMP 98.3
[2022-09-28] MEDS: Ferrous Sulfate 325 MG TAB PO SCH (09:36)
[2022-09-28] MEDS: NIFEdipine XL 60 MG TAB PO SCH (09:37)
[2022-09-28] MEDS: Metoprolol Tartrate 100 MG TAB PO SCH (09:37)
[2022-09-28] MEDS: Calcitriol 0.25 MCG CAP PO SCH (09:37)
== END 2022-09-28 16:00 | disposition home or self-care (01) | DRG 100 ==
LOC: ERS 23:56 → CCU 09-24 02:45 → 2SE 09-24 09:16
PROVIDERS: ADMIT Student in an Organized Health Care Education/Training Program; ATTEND Internal Medicine
PROC: 5A1D70Z Performance of Urinary Filtration, Intermittent, Less than 6 Hours Per Day (ICD-10-PCS; principal; 2022-09-25)
DX: G40.901 Epilepsy, unspecified, not intractable, with status epilepticus (principal); G93.6 Cerebral edema; I67.83 Posterior reversible encephalopathy syndrome; N18.6 End stage renal disease; I12.0 Hypertensive chronic kidney disease with stage 5 chronic kidney disease or end stage renal disease; I16.1 Hypertensive emergency; E87.20 Acidosis, unspecified; N25.81 Secondary hyperparathyroidism of renal origin; N17.9 Acute kidney failure, unspecified; E87.1 Hypo-osmolality and hyponatremia; I16.0 Hypertensive urgency; Z99.2 Dependence on renal dialysis; Z79.899 Other long term (current) drug therapy; D63.1 Anemia in chronic kidney disease; E87.5 Hyperkalemia; B85.0 Pediculosis due to Pediculus humanus capitis; E55.9 Vitamin D deficiency, unspecified
CPT/HCPCS: 36415; 70450; 70551; 80048; 80053; 80306; 82550; 83605; 83735; 83970; 84100; 84146; 84443; 84703; 85025; 86704; 90935; 93005; 96365; 96366; 96375; C9113; G0257; J1644; J1953; J2060; Q4081

== ENCOUNTER 2022-10-12 10:40 | Emergency (ER) | payer MEDICAID, SELFPAY ==
[~2022-10-12 10:40] MED LIST: Heparin 10,000 UNITS/ 10 ML VIAL ONE
[2022-10-12 12:04] LABS: #Basophils 0.1 thou/uL (0.0-0.2); #Eosinphils 2.4 thou/uL (0.0-0.7); #Monocytes 0.4 thou/uL (0.11-0.59); #Neutrophils 7.3 thou/uL (1.40-6.50); %Basophils 0.5 % (0.0-1.0); %Eosinophils 19.4 % (0.0-10.0); %Lymphocytes 17.3 % (21.0-51.0); %Monocytes 2.9 % (0.0-10.0); %Neutrophils 59.7 % (42.0-75.0); Hemoglobin 9.9 g/dL (12.0-16.0); Mean Corpuscular HGB CONC 32.9 g/dL (32.0-36.0); Mean Corpuscular Hemoglobin 30.7 pg (27.0-31.0); Mean Corpuscular Volume 93.5 fl (78.0-98.0); Mean Platelet Volume 10.8 fL (7.4-10.4); Platelet Count 227 10x3/uL (130-400); RBC Distribution Width 14.9 % (11.5-14.5); Red Blood Cell (RBC) Count 3.22 mill/uL (4.20-5.40); White Blood Cell (WBC) Count 12.2 10x3/uL (4.8-10.8)
[2022-10-12 12:14] LABS: ALT (SGPT) 10 U/L (8-55); AST (SGOT) 10 U/L (5-34); Albumin 4.4 g/dL (3.5-5.0); Alkaline Phosphatase 106 U/L (40-110); Anion Gap 22 mmol/L (10-20); BUN (Urea Nitrogen) 44 mg/dL (7.0-18.7); Bilirubin, Total 0.4 mg/dL (0.2-1.2); Calc. Creatinine Clearance 0 mL/min (70-130); Calcium 9.3 mg/dL (7.8-10.44); Carbon Dioxide 22 mmol/L (22-29); Chloride 100 mmol/L (98-107); Estimated GFR 2; Globulin 3.5 g/dL (2.4-3.5); Glucose 107 mg/dL (70-105); Potassium 4.4 mmol/L (3.5-5.1); Protein, Total 7.9 g/dL (6.0-8.3); Sodium 140 mmol/L (136-145)
[2022-10-12 12:15] LABS: BHCG - Serum Negative (NEGATIVE); Pregs Control Background? CLEAR/WHITE (CLR/WHITE); Pregs Control Bar Appear? YES (CONTROL BAR)
== END 2022-10-12 20:09 | disposition home or self-care (01) ==
LOC: ERS 10:40
DX: I12.0 Hypertensive chronic kidney disease with stage 5 chronic kidney disease or end stage renal disease (principal); N18.6 End stage renal disease; Z99.2 Dependence on renal dialysis
CPT/HCPCS: 80053; 84703; 85025; 99283; J1644

== ENCOUNTER 2022-10-19 10:22 | Emergency (ER) | payer MEDICAID ==
[2022-10-19 11:54] LABS: #Eosinphils 1.6 thou/uL (0.0-0.7); #Monocytes 0.4 thou/uL (0.11-0.59); #Neutrophils 5.4 thou/uL (1.40-6.50); %Basophils 0.3 % (0.0-1.0); %Eosinophils 17.1 % (0.0-10.0); %Lymphocytes 19.9 % (21.0-51.0); %Monocytes 4.6 % (0.0-10.0); %Neutrophils 57.9 % (42.0-75.0); Hemoglobin 7.2 g/dL (12.0-16.0); Mean Corpuscular HGB CONC 32.9 g/dL (32.0-36.0); Mean Corpuscular Hemoglobin 31.4 pg (27.0-31.0); Mean Corpuscular Volume 95.6 fl (78.0-98.0); Mean Platelet Volume 9.8 fL (7.4-10.4); Platelet Count 184 10x3/uL (130-400); RBC Distribution Width 14.7 % (11.5-14.5); Red Blood Cell (RBC) Count 2.29 mill/uL (4.20-5.40); White Blood Cell (WBC) Count 9.3 10x3/uL (4.8-10.8)
[2022-10-19 12:24] LABS: ALT (SGPT) Less than 7 U/L (8-55); AST (SGOT) 7 U/L (5-34); Albumin 3.5 g/dL (3.5-5.0); Alkaline Phosphatase 63 U/L (40-110); Anion Gap 23 mmol/L (10-20); BUN (Urea Nitrogen) 80 mg/dL (7.0-18.7); Bilirubin, Total 0.5 mg/dL (0.2-1.2); Calc. Creatinine Clearance 0 mL/min (70-130); Calcium 8.8 mg/dL (7.8-10.44); Carbon Dioxide 17 mmol/L (22-29); Chloride 106 mmol/L (98-107); Estimated GFR 2; Globulin 2.8 g/dL (2.4-3.5); Glucose 82 mg/dL (70-105); Protein, Total 6.3 g/dL (6.0-8.3); Sodium 140 mmol/L (136-145)
[2022-10-19 12:48] LABS: Potassium 6.2 mmol/L (3.5-5.1)
[2022-10-19] MEDS ORDERED: Calcium Chloride 1 GM/10 ML Abboject SYRINGE ONE (13:29)
[2022-10-19 15:42] LABS: HBSAB Concentration Less than 8.00 mIU/mL; HBSAg Index 0.23 S/CO (0-0.99); Hep B Core Total Ab Non-Reactive (NonReactive); Hep B Surf AB Non-Reactive (NonReactive); Hep B Surf Ag Non-Reactive S/CO (NonReactive); Hep C IgG Ab Non-Reactive S/CO (NonReactive); Hep C Index 0.08 S/CO (0-0.79)
[2022-10-19] MEDS ORDERED: Epoetin (ESRD) 10,000 UNITS/ML VIAL SC SCH (16:16)
[2022-10-19] MEDS ORDERED: Ondansetron PF 4 MG/2 ML Vial ONE (22:59)
== END 2022-10-19 23:10 | disposition home or self-care (01) ==
LOC: ERS 10:22
DX: I12.0 Hypertensive chronic kidney disease with stage 5 chronic kidney disease or end stage renal disease (principal); N18.6 End stage renal disease; Z99.2 Dependence on renal dialysis; E87.5 Hyperkalemia; J81.1 Chronic pulmonary edema
CPT/HCPCS: 36415; 71045; 80053; 84484; 85025; 86704; 87070; 87205; 93005; 96365; 96366; 96375; J1644; J2405; Q4081

== ENCOUNTER 2022-10-21 09:41 | Emergency (ER) | payer MEDICAID, SELFPAY ==
[2022-10-21 10:26] LABS: #Eosinphils 1.4 thou/uL (0.0-0.7); #Monocytes 0.4 thou/uL (0.11-0.59); #Neutrophils 3.8 thou/uL (1.40-6.50); %Basophils 0.6 % (0.0-1.0); %Lymphocytes 21.8 % (21.0-51.0); %Neutrophils 52.3 % (42.0-75.0); Hemoglobin 8.1 g/dL (12.0-16.0); Mean Corpuscular HGB CONC 32.4 g/dL (32.0-36.0); Mean Corpuscular Hemoglobin 30.9 pg (27.0-31.0); Mean Corpuscular Volume 95.4 fl (78.0-98.0); Mean Platelet Volume 10.2 fL (7.4-10.4); Platelet Count 213 10x3/uL (130-400); RBC Distribution Width 14.2 % (11.5-14.5); Red Blood Cell (RBC) Count 2.62 mill/uL (4.20-5.40); White Blood Cell (WBC) Count 7.2 10x3/uL (4.8-10.8)
[2022-10-21 10:59] LABS: ALT (SGPT) Less than 7 U/L (8-55); AST (SGOT) 8 U/L (5-34); Albumin 3.7 g/dL (3.5-5.0); Alkaline Phosphatase 67 U/L (40-110); Anion Gap 19 mmol/L (10-20); BUN (Urea Nitrogen) 35 mg/dL (7.0-18.7); Bilirubin, Total 0.4 mg/dL (0.2-1.2); Calc. Creatinine Clearance 0 mL/min (70-130); Carbon Dioxide 25 mmol/L (22-29); Chloride 99 mmol/L (98-107); Estimated GFR 4; Glucose 87 mg/dL (70-105); Potassium 4.6 mmol/L (3.5-5.1); Protein, Total 6.7 g/dL (6.0-8.3); Sodium 138 mmol/L (136-145)
[2022-10-21] MEDS ORDERED: Vancomycin 1.5 GRAM/300 ML BAG 1.5 GM in Premix Bag 1 BAG IVPB SCH (12:00)
[2022-10-21] MEDS ORDERED: diphenhydrAMINE 25 MG CAP ONE (14:20)
== END 2022-10-21 14:40 | disposition home or self-care (01) ==
LOC: ERS 09:41
DX: I12.0 Hypertensive chronic kidney disease with stage 5 chronic kidney disease or end stage renal disease (principal); N18.6 End stage renal disease; Z99.2 Dependence on renal dialysis
CPT/HCPCS: 36415; 71045; 80053; 85025; 87040; 96365; 96366; J3370

== ENCOUNTER 2022-10-26 22:03 | Inpatient (IN) | payer MEDICAID, SELFPAY ==
[2022-10-26] MEDS ORDERED: hydrALAZINE 20 MG/ML VIAL ONE (22:27)
[2022-10-26 22:46] LABS: #Eosinphils 1.5 thou/uL (0.0-0.7); #Monocytes 0.5 thou/uL (0.11-0.59); #Neutrophils 3.9 thou/uL (1.40-6.50); %Basophils 0.5 % (0.0-1.0); %Eosinophils 18.4 % (0.0-10.0); %Lymphocytes 28.2 % (21.0-51.0); %Monocytes 5.5 % (0.0-10.0); %Neutrophils 47.2 % (42.0-75.0); Hematocrit 21.6 % (36.0-47.0); Hemoglobin 7.2 g/dL (12.0-16.0); Mean Corpuscular HGB CONC 33.3 g/dL (32.0-36.0); Mean Corpuscular Hemoglobin 31.7 pg (27.0-31.0); Mean Corpuscular Volume 95.2 fl (78.0-98.0); Mean Platelet Volume 9.7 fL (7.4-10.4); Platelet Count 224 10x3/uL (130-400); RBC Distribution Width 14.9 % (11.5-14.5); Red Blood Cell (RBC) Count 2.27 mill/uL (4.20-5.40); White Blood Cell (WBC) Count 8.2 10x3/uL (4.8-10.8)
[2022-10-26 23:05] LABS: BHCG - Serum Negative (NEGATIVE); Pregs Control Background? CLEAR/WHITE (CLR/WHITE); Pregs Control Bar Appear? YES (CONTROL BAR)
[2022-10-26 23:08] LABS: ALT (SGPT) Less than 7 U/L (8-55); AST (SGOT) 8 U/L (5-34); Albumin 3.9 g/dL (3.5-5.0); Alkaline Phosphatase 72 U/L (40-110); Anion Gap 22 mmol/L (10-20); BUN (Urea Nitrogen) 67 mg/dL (7.0-18.7); Bilirubin, Total 0.5 mg/dL (0.2-1.2); Calc. Creatinine Clearance 0 mL/min (70-130); Calcium 8.7 mg/dL (7.8-10.44); Carbon Dioxide 19 mmol/L (22-29); Chloride 103 mmol/L (98-107); Estimated GFR 2; Globulin 2.9 g/dL (2.4-3.5); Glucose 79 mg/dL (70-105); INR-International Normal Ratio 1.2; PTT 30.8 sec (22.9-36.1); Potassium 5.4 mmol/L (3.5-5.1); Protein, Total 6.8 g/dL (6.0-8.3); Prothrombin Time 15.3 sec (12.0-14.7); Sodium 139 mmol/L (136-145)
[2022-10-26] MEDS ORDERED: Carvedilol 6.25 MG TAB PO SCH (23:45)
[2022-10-26] MEDS ORDERED: NIFEdipine XL 90 MG TAB PO SCH (23:45)
[2022-10-27] MEDS ORDERED: Acetaminophen 325 MG TAB PO PRN (00:15)
[2022-10-27] MEDS ORDERED: Ondansetron ODT 4 MG TAB SL PRN (00:15)
[2022-10-27] MEDS ORDERED: Ondansetron PF 4 MG/2 ML Vial IVP PRN ×2 (00:15→10:07)
[2022-10-27 01:15] VITALS: BMI 29.1
[2022-10-27] MEDS ORDERED: hydrALAZINE 20 MG/ML VIAL SLOW IVP SCH (02:15)
[2022-10-27 07:06] LABS: #Eosinphils 1.3 thou/uL (0.0-0.7); #Monocytes 0.4 thou/uL (0.11-0.59); #Neutrophils 6.6 thou/uL (1.40-6.50); %Basophils 0.4 % (0.0-1.0); %Eosinophils 13.5 % (0.0-10.0); %Lymphocytes 13.6 % (21.0-51.0); %Monocytes 3.8 % (0.0-10.0); %Neutrophils 68.3 % (42.0-75.0); Hemoglobin 7.5 g/dL (12.0-16.0); Mean Corpuscular HGB CONC 32.6 g/dL (32.0-36.0); Mean Corpuscular Hemoglobin 31.6 pg (27.0-31.0); Mean Platelet Volume 9.9 fL (7.4-10.4); Platelet Count 234 10x3/uL (130-400); RBC Distribution Width 15.2 % (11.5-14.5); Red Blood Cell (RBC) Count 2.37 mill/uL (4.20-5.40); White Blood Cell (WBC) Count 9.7 10x3/uL (4.8-10.8)
[2022-10-27 07:28] LABS: Anion Gap 24 mmol/L (10-20); BUN (Urea Nitrogen) 69 mg/dL (7.0-18.7); Calc. Creatinine Clearance 4 mL/min (70-130); Calcium 8.5 mg/dL (7.8-10.44); Carbon Dioxide 14 mmol/L (22-29); Chloride 103 mmol/L (98-107); Estimated GFR 2; Glucose 76 mg/dL (70-105); Potassium 5.2 mmol/L (3.5-5.1); Sodium 136 mmol/L (136-145)
[2022-10-27] MEDS ORDERED: Iron, Sodium Ferric Gluconate 250 MG in Sodium Chloride 0.9% 250 ML 250 ML IVPB SCH (08:00)
[2022-10-27] MEDS: Metoprolol Tartrate 100 MG TAB PO SCH ×2 (08:50→20:36)
[2022-10-27] MEDS: NIFEdipine XL 60 MG TAB PO SCH ×2 (08:50→20:37)
[2022-10-27] MEDS: Epoetin (ESRD) 10,000 UNITS/ML VIAL SC SCH (09:25)
[2022-10-27] MEDS: Acetaminophen 325 MG TAB PO PRN ×2 (11:51→20:37)
[2022-10-27] MEDS: levETIRAcetam 500 MG TAB PO SCH (20:37)
[2022-10-27] MEDS: Sodium Bicarbonate Tab 325 MG TAB PO SCH (20:37)
[2022-10-27] MEDS ORDERED: Metoprolol Tartrate 100 MG TAB PO SCH (21:00)
[2022-10-27] MEDS ORDERED: NIFEdipine XL 60 MG TAB PO SCH (21:00)
[2022-10-28 06:42] LABS: #Basophils 0.1 thou/uL (0.0-0.2); #Eosinphils 1.2 thou/uL (0.0-0.7); #Monocytes 0.4 thou/uL (0.11-0.59); %Basophils 0.7 % (0.0-1.0); %Eosinophils 15.7 % (0.0-10.0); %Lymphocytes 25.1 % (21.0-51.0); %Monocytes 5.6 % (0.0-10.0); %Neutrophils 52.8 % (42.0-75.0); Hematocrit 25.4 % (36.0-47.0); Hemoglobin 8.4 g/dL (12.0-16.0); Mean Corpuscular HGB CONC 33.1 g/dL (32.0-36.0); Mean Corpuscular Hemoglobin 31.5 pg (27.0-31.0); Mean Corpuscular Volume 95.1 fl (78.0-98.0); Mean Platelet Volume 10.3 fL (7.4-10.4); Platelet Count 265 10x3/uL (130-400); RBC Distribution Width 14.9 % (11.5-14.5); Red Blood Cell (RBC) Count 2.67 mill/uL (4.20-5.40); White Blood Cell (WBC) Count 7.7 10x3/uL (4.8-10.8)
[2022-10-28 07:35] LABS: Anion Gap 21 mmol/L (10-20); BUN (Urea Nitrogen) 19 mg/dL (7.0-18.7); Calc. Creatinine Clearance 8 mL/min (70-130); Calcium 9.1 mg/dL (7.8-10.44); Carbon Dioxide 23 mmol/L (22-29); Chloride 98 mmol/L (98-107); Estimated GFR 4; Glucose 65 mg/dL (70-105); Potassium 3.7 mmol/L (3.5-5.1); Sodium 138 mmol/L (136-145)
[2022-10-28] MEDS: Sodium Bicarbonate Tab 325 MG TAB PO SCH ×3 (07:57→20:18)
[2022-10-28] MEDS: NIFEdipine XL 60 MG TAB PO SCH ×2 (07:57→20:18)
[2022-10-28] MEDS: Metoprolol Tartrate 100 MG TAB PO SCH ×2 (07:57→20:18)
[2022-10-28] MEDS ORDERED: Vancomycin Diaylsis Sliding Scale (Wt 71-99) FS SCH (08:00)
[2022-10-28] MEDS ORDERED: Vancomycin 1.5 GRAM/300 ML BAG 1.5 GM in Premix Bag 1 BAG IVPB SCH (08:00)
[2022-10-28] MEDS: levETIRAcetam 500 MG TAB PO SCH (20:18)
[2022-10-29 08:27] LABS: #Eosinphils 1.7 thou/uL (0.0-0.7); #Monocytes 0.5 thou/uL (0.11-0.59); #Neutrophils 4.2 thou/uL (1.40-6.50); %Basophils 0.4 % (0.0-1.0); %Eosinophils 20.9 % (0.0-10.0); %Monocytes 6.7 % (0.0-10.0); %Neutrophils 52.7 % (42.0-75.0); Hematocrit 25.9 % (36.0-47.0); Hemoglobin 8.5 g/dL (12.0-16.0); Mean Corpuscular HGB CONC 32.8 g/dL (32.0-36.0); Mean Corpuscular Hemoglobin 31.3 pg (27.0-31.0); Mean Corpuscular Volume 95.2 fl (78.0-98.0); Mean Platelet Volume 9.7 fL (7.4-10.4); Platelet Count 265 10x3/uL (130-400); RBC Distribution Width 14.6 % (11.5-14.5); Red Blood Cell (RBC) Count 2.72 mill/uL (4.20-5.40); White Blood Cell (WBC) Count 7.9 10x3/uL (4.8-10.8)
[2022-10-29 08:46] LABS: Anion Gap 19 mmol/L (10-20); BUN (Urea Nitrogen) 25 mg/dL (7.0-18.7); Calc. Creatinine Clearance 6 mL/min (70-130); Calcium 8.3 mg/dL (7.8-10.44); Carbon Dioxide 22 mmol/L (22-29); Chloride 99 mmol/L (98-107); Estimated GFR 3; Glucose 66 mg/dL (70-105); Potassium 3.9 mmol/L (3.5-5.1); Sodium 136 mmol/L (136-145)
[2022-10-29 08:51] LABS: Vancomycin, Random 26.3 ug/mL (See Comment)
[2022-10-29] MEDS: NIFEdipine XL 60 MG TAB PO SCH ×2 (09:04→20:19)
[2022-10-29] MEDS: Metoprolol Tartrate 100 MG TAB PO SCH ×2 (09:05→20:19)
[2022-10-29] MEDS: Sodium Bicarbonate Tab 325 MG TAB PO SCH ×3 (09:05→20:19)
[2022-10-29] MEDS ORDERED: Heparin 10,000 UNITS/ 10 ML VIAL ONE (11:29)
[2022-10-29] MEDS: levETIRAcetam 500 MG TAB PO SCH (20:19)
[2022-10-29] MEDS: Acetaminophen 325 MG TAB PO PRN (20:23)
[2022-10-30] MEDS: Metoprolol Tartrate 100 MG TAB PO SCH ×2 (08:08→22:02)
[2022-10-30] MEDS: Sodium Bicarbonate Tab 325 MG TAB PO SCH ×3 (08:08→22:02)
[2022-10-30] MEDS: NIFEdipine XL 60 MG TAB PO SCH ×2 (08:08→22:02)
[2022-10-30] MEDS ORDERED: Vancomycin HCl 500 MG in Sodium Chloride 0.9% 100 ML IV SCH (09:00)
[2022-10-30] MEDS: levETIRAcetam 500 MG TAB PO SCH (22:02)
[2022-10-31 06:15] LABS: Vancomycin, Random 25.7 ug/mL (See Comment)
[2022-10-31] MEDS: Sodium Bicarbonate Tab 325 MG TAB PO SCH ×3 (08:25→20:09)
[2022-10-31] MEDS ORDERED: Heparin 10,000 UNITS/ 10 ML VIAL ONE (08:33)
[2022-10-31] MEDS: Metoprolol Tartrate 100 MG TAB PO SCH ×2 (15:15→20:09)
[2022-10-31] MEDS: NIFEdipine XL 60 MG TAB PO SCH ×2 (15:16→20:09)
[2022-10-31] MEDS ORDERED: hydrALAZINE 25 MG TAB PO PRN (19:56)
[2022-10-31] MEDS: levETIRAcetam 500 MG TAB PO SCH (20:10)
[2022-11-01 07:20] LABS: Vancomycin, Random 15.7 ug/mL (See Comment)
[2022-11-01] MEDS: Sodium Bicarbonate Tab 325 MG TAB PO SCH ×3 (08:07→20:09)
[2022-11-01] MEDS: NIFEdipine XL 60 MG TAB PO SCH ×2 (08:10→20:09)
[2022-11-01] MEDS: Metoprolol Tartrate 100 MG TAB PO SCH ×2 (08:10→20:09)
[2022-11-01 09:04] LABS: #Basophils 0.1 thou/uL (0.0-0.2); #Eosinphils 1.6 thou/uL (0.0-0.7); #Monocytes 0.7 thou/uL (0.11-0.59); #Neutrophils 4.3 thou/uL (1.40-6.50); %Basophils 0.6 % (0.0-1.0); %Eosinophils 18.8 % (0.0-10.0); %Lymphocytes 22.2 % (21.0-51.0); %Monocytes 7.8 % (0.0-10.0); %Neutrophils 50.2 % (42.0-75.0); Hematocrit 31.3 % (36.0-47.0); Hemoglobin 10.2 g/dL (12.0-16.0); Mean Corpuscular HGB CONC 32.6 g/dL (32.0-36.0); Mean Corpuscular Hemoglobin 31.7 pg (27.0-31.0); Mean Corpuscular Volume 97.2 fl (78.0-98.0); Platelet Count 256 10x3/uL (130-400); RBC Distribution Width 14.9 % (11.5-14.5); Red Blood Cell (RBC) Count 3.22 mill/uL (4.20-5.40); White Blood Cell (WBC) Count 8.6 10x3/uL (4.8-10.8)
[2022-11-01 09:26] LABS: Albumin 4.1 g/dL (3.5-5.0); Anion Gap 16 mmol/L (10-20); BUN (Urea Nitrogen) 9 mg/dL (7.0-18.7); BUN/Creatinine Ratio 1.08; Calc. Creatinine Clearance 11 mL/min (70-130); Carbon Dioxide 27 mmol/L (22-29); Chloride 96 mmol/L (98-107); Estimated GFR 6; Glucose 85 mg/dL (70-105); Phosphorus 3.7 mg/dL (2.3-4.7); Potassium 3.8 mmol/L (3.5-5.1); Sodium 135 mmol/L (136-145)
[2022-11-01] MEDS: Acetaminophen 325 MG TAB PO PRN (11:37)
[2022-11-01] MEDS: levETIRAcetam 500 MG TAB PO SCH (20:10)
[2022-11-02 07:38] LABS: Vancomycin, Random 15.2 ug/mL (See Comment)
[2022-11-02] MEDS ORDERED: Heparin 10,000 UNITS/ 10 ML VIAL ONE (09:00)
[2022-11-02] MEDS ORDERED: Vancomycin HCl 750 MG in Sodium Chloride 0.9% 250 ML 250 ML IVPB SCH (17:00)
[2022-11-02] MEDS: NIFEdipine XL 30 MG TAB PO SCH ×2 (17:45→21:14)
[2022-11-02] MEDS: Sodium Bicarbonate Tab 325 MG TAB PO SCH ×3 (17:47→21:15)
[2022-11-02] MEDS: Metoprolol Tartrate 100 MG TAB PO SCH ×2 (17:47→21:15)
[2022-11-02] MEDS: levETIRAcetam 500 MG TAB PO SCH (21:15)
[2022-11-03] MEDS ORDERED: Sevoflurane 250 ML INH ANEST BOTTLE ONE (04:27)
[2022-11-03] MEDS: Sodium Bicarbonate Tab 325 MG TAB PO SCH ×3 (08:16→21:27)
[2022-11-03] MEDS: Metoprolol Tartrate 100 MG TAB PO SCH ×2 (08:16→21:27)
[2022-11-03] MEDS ORDERED: fentaNYL 50 mcg/mL 1 mL Vial ONE ×2 (09:33→12:30)
[2022-11-03] MEDS ORDERED: Ropivacaine 0.5% HCl/PF (150 MG/30 ML VIAL) ONE (09:33)
[2022-11-03] MEDS ORDERED: fentaNYL PF 100 MCG/2 ML SYRINGE ONE (10:16)
[2022-11-03] MEDS ORDERED: Propofol 1,000 MG/100 ML VIAL IV ONE (10:16)
[2022-11-03] MEDS ORDERED: Midazolam HCl 2 mg/2 ml Vial ONE (10:16)
[2022-11-03] MEDS ORDERED: Protamine Sulfate 50 MG/5 ML VIAL ONE (10:24)
[2022-11-03] MEDS ORDERED: Bupivacaine PF 0.5% 30 ML VIAL ONE (10:24)
[2022-11-03] MEDS ORDERED: Heparin 5,000 UNITS/ML VIAL ONE (10:24)
[2022-11-03] MEDS ORDERED: Heparin 10,000 UNITS/ 10 ML VIAL ONE (10:24)
[2022-11-03] MEDS ORDERED: Lidocaine 2% PF 5 ML VIAL ONE (10:24)
[2022-11-03] MEDS ORDERED: EPINEPHrine 1 MG/10 ML Abboject SYRINGE ONE (10:25)
[2022-11-03] MEDS ORDERED: PHENYLEPHRINE-NS 100 MCG/ML 10 ML SYRINGE ONE (10:57)
[2022-11-03] MEDS ORDERED: Ondansetron HCl/PF 4 MG/2 ML Vial IVP PRN (12:19)
[2022-11-03] MEDS ORDERED: Promethazine HCl 25 MG/ML VIAL IM PRN (12:19)
[2022-11-03] MEDS ORDERED: traMADol HCl 50 MG TAB PO PRN (12:30)
[2022-11-03] MEDS: Epoetin (ESRD) 10,000 UNITS/ML VIAL SC SCH (16:12)
[2022-11-03] MEDS: Acetaminophen 500 MG TAB PO PRN (16:12)
[2022-11-03] MEDS: levETIRAcetam 500 MG TAB PO SCH (21:27)
[2022-11-04 08:12] LABS: #Basophils 0.1 thou/uL (0.0-0.2); #Eosinphils 1.8 thou/uL (0.0-0.7); #Monocytes 0.6 thou/uL (0.11-0.59); %Basophils 0.5 % (0.0-1.0); %Eosinophils 16.5 % (0.0-10.0); %Monocytes 5.5 % (0.0-10.0); %Neutrophils 55.3 % (42.0-75.0); Hematocrit 29.4 % (36.0-47.0); Hemoglobin 9.2 g/dL (12.0-16.0); Mean Corpuscular HGB CONC 31.3 g/dL (32.0-36.0); Mean Corpuscular Hemoglobin 31.8 pg (27.0-31.0); Mean Corpuscular Volume 101.7 fl (78.0-98.0); Mean Platelet Volume 10.4 fL (7.4-10.4); Platelet Count 203 10x3/uL (130-400); Red Blood Cell (RBC) Count 2.89 mill/uL (4.20-5.40); White Blood Cell (WBC) Count 10.8 10x3/uL (4.8-10.8)
[2022-11-04] MEDS: Metoprolol Tartrate 100 MG TAB PO SCH (08:29)
[2022-11-04 08:35] LABS: Anion Gap 19 mmol/L (10-20); BUN (Urea Nitrogen) 25 mg/dL (7.0-18.7); Calc. Creatinine Clearance 8 mL/min (70-130); Calcium 9.3 mg/dL (7.8-10.44); Carbon Dioxide 23 mmol/L (22-29); Chloride 100 mmol/L (98-107); Estimated GFR 4; Glucose 86 mg/dL (70-105); Potassium 4.2 mmol/L (3.5-5.1); Sodium 138 mmol/L (136-145)
[2022-11-04 08:36] LABS: Vancomycin, Random 7.9 ug/mL (See Comment)
[2022-11-04] MEDS: Sodium Bicarbonate Tab 325 MG TAB PO SCH ×2 (08:38→15:45)
[2022-11-04] MEDS: Acetaminophen 500 MG TAB PO PRN ×2 (08:38→15:45)
[2022-11-04] MEDS ORDERED: Clindamycin 150 MG CAP PO SCH (15:00)
[2022-11-04 15:50] VITALS: BP 126/79; TEMP 98.2
== END 2022-11-04 18:26 | disposition home or self-care (01) | DRG 314 ==
LOC: ERS 22:03 → T4-B 23:59 → OBSVTOIN 10-27 15:50
PROVIDERS: ADMIT Internal Medicine; ATTEND Internal Medicine
PROC: 0JPT3XZ Removal of Tunneled Vascular Access Device from Trunk Subcutaneous Tissue and Fascia, Percutaneous Approach (ICD-10-PCS; principal; 2022-11-03)
PROC: 0JH63XZ Insertion of Tunneled Vascular Access Device into Chest Subcutaneous Tissue and Fascia, Percutaneous Approach (ICD-10-PCS; 2022-11-03)
PROC: B5131ZA Fluoroscopy of Right Jugular Veins using Low Osmolar Contrast, Guidance (ICD-10-PCS; 2022-11-03)
DX: T82.7XXA Infection and inflammatory reaction due to other cardiac and vascular devices, implants and grafts, initial encounter (principal); N18.6 End stage renal disease; N02.8 Recurrent and persistent hematuria with other morphologic changes; I12.0 Hypertensive chronic kidney disease with stage 5 chronic kidney disease or end stage renal disease; Z99.2 Dependence on renal dialysis; I16.0 Hypertensive urgency; E87.5 Hyperkalemia; D63.1 Anemia in chronic kidney disease; Z79.899 Other long term (current) drug therapy; G40.909 Epilepsy, unspecified, not intractable, without status epilepticus; Z98.51 Tubal ligation status
CPT/HCPCS: 36415; 36416; 71045; 80048; 80053; 80069; 80202; 84703; 85025; 85610; 85730; 87040; 87070; 87205; 90935; 93970; 96374; G0257; J0171; J0360; J1644; J2001; J2250; J2405; J2704; J2720; J2795; J2916; J3010; J3370; J3490; J7050; Q4081; S0020

== ENCOUNTER 2022-11-09 08:57 | Emergency (ER) | payer MEDICAID ==
[2022-11-09 10:06] LABS: #Eosinphils 1.4 thou/uL (0.0-0.7); #Monocytes 0.6 thou/uL (0.11-0.59); #Neutrophils 4.2 thou/uL (1.40-6.50); %Basophils 0.2 % (0.0-1.0); %Eosinophils 17.8 % (0.0-10.0); %Lymphocytes 22.4 % (21.0-51.0); %Monocytes 7.3 % (0.0-10.0); %Neutrophils 51.9 % (42.0-75.0); Mean Corpuscular Hemoglobin 31.9 pg (27.0-31.0); Mean Corpuscular Volume 99.6 fl (78.0-98.0); Mean Platelet Volume 10.8 fL (7.4-10.4); Platelet Count 226 10x3/uL (130-400); RBC Distribution Width 14.6 % (11.5-14.5); Red Blood Cell (RBC) Count 2.51 mill/uL (4.20-5.40); White Blood Cell (WBC) Count 8.1 10x3/uL (4.8-10.8)
[2022-11-09 10:24] LABS: Phosphorus 6.5 mg/dL (2.3-4.7)
[2022-11-09 10:37] LABS: ALT (SGPT) Less than 7 U/L (8-55); AST (SGOT) 9 U/L (5-34); Albumin 3.8 g/dL (3.5-5.0); Alkaline Phosphatase 55 U/L (40-110); Anion Gap 21 mmol/L (10-20); BUN (Urea Nitrogen) 72 mg/dL (7.0-18.7); Bilirubin, Total 0.5 mg/dL (0.2-1.2); Calc. Creatinine Clearance 0 mL/min (70-130); Calcium 9.3 mg/dL (7.8-10.44); Carbon Dioxide 20 mmol/L (22-29); Chloride 99 mmol/L (98-107); Estimated GFR 2; Globulin 2.5 g/dL (2.4-3.5); Glucose 84 mg/dL (70-105); Magnesium 2.2 mg/dL (1.6-2.6); Potassium 4.3 mmol/L (3.5-5.1); Protein, Total 6.3 g/dL (6.0-8.3); Sodium 136 mmol/L (136-145)
== END 2022-11-09 18:15 | disposition home or self-care (01) ==
LOC: ERS 08:57
DX: R45.851 Suicidal ideations (principal); I12.0 Hypertensive chronic kidney disease with stage 5 chronic kidney disease or end stage renal disease; N18.6 End stage renal disease; Z99.2 Dependence on renal dialysis
CPT/HCPCS: 36415; 80053; 83735; 84100; 85025; 90935; 93005; G0257

== ENCOUNTER 2022-11-16 09:01 | Emergency (ER) | payer MEDICAID, SELFPAY ==
[2022-11-16 09:25] LABS: #Eosinphils 1.9 thou/uL (0.0-0.7); #Monocytes 0.4 thou/uL (0.11-0.59); #Neutrophils 4.4 thou/uL (1.40-6.50); %Basophils 0.5 % (0.0-1.0); %Eosinophils 21.8 % (0.0-10.0); %Lymphocytes 22.2 % (21.0-51.0); %Monocytes 4.5 % (0.0-10.0); %Neutrophils 50.9 % (42.0-75.0); Hematocrit 23.5 % (36.0-47.0); Hemoglobin 7.8 g/dL (12.0-16.0); Mean Corpuscular HGB CONC 33.2 g/dL (32.0-36.0); Mean Corpuscular Hemoglobin 32.4 pg (27.0-31.0); Mean Corpuscular Volume 97.5 fl (78.0-98.0); Mean Platelet Volume 9.9 fL (7.4-10.4); Platelet Count 223 10x3/uL (130-400); Red Blood Cell (RBC) Count 2.41 mill/uL (4.20-5.40); White Blood Cell (WBC) Count 8.6 10x3/uL (4.8-10.8)
[2022-11-16 09:46] LABS: Phosphorus 8.7 mg/dL (2.3-4.7)
[2022-11-16 09:47] LABS: ALT (SGPT) Less than 7 U/L (8-55); AST (SGOT) 10 U/L (5-34); Albumin 3.8 g/dL (3.5-5.0); Alkaline Phosphatase 52 U/L (40-110); Anion Gap 23 mmol/L (10-20); BUN (Urea Nitrogen) 83 mg/dL (7.0-18.7); Bilirubin, Total 0.5 mg/dL (0.2-1.2); Calc. Creatinine Clearance 0 mL/min (70-130); Calcium 8.4 mg/dL (7.8-10.44); Carbon Dioxide 17 mmol/L (22-29); Chloride 104 mmol/L (98-107); Estimated GFR 2; Globulin 2.6 g/dL (2.4-3.5); Glucose 86 mg/dL (70-105); Magnesium 2.7 mg/dL (1.6-2.6); Protein, Total 6.4 g/dL (6.0-8.3); Sodium 139 mmol/L (136-145)
[2022-11-16] MEDS ORDERED: Epoetin (ESRD) 10,000 UNITS/ML VIAL SC SCH (12:45)
== END 2022-11-16 10:35 | disposition home or self-care (01) ==
LOC: ERS 09:01
DX: I12.9 Hypertensive chronic kidney disease with stage 1 through stage 4 chronic kidney disease, or unspecified chronic kidney disease (principal); N18.6 End stage renal disease; E83.41 Hypermagnesemia; E83.39 Other disorders of phosphorus metabolism; Z99.2 Dependence on renal dialysis
CPT/HCPCS: 36415; 80053; 83735; 84100; 85025; 93005

== ENCOUNTER 2022-11-21 09:15 | Emergency (ER) | payer SELFPAY ==
[2022-11-21 09:57] LABS: #Basophils 0.1 thou/uL (0.0-0.2); #Eosinphils 1.6 thou/uL (0.0-0.7); #Monocytes 0.4 thou/uL (0.11-0.59); #Neutrophils 5.5 thou/uL (1.40-6.50); %Basophils 0.7 % (0.0-1.0); %Eosinophils 17.5 % (0.0-10.0); %Monocytes 4.2 % (0.0-10.0); %Neutrophils 60.4 % (42.0-75.0); Hematocrit 21.7 % (36.0-47.0); Hemoglobin 7.2 g/dL (12.0-16.0); Mean Corpuscular HGB CONC 33.2 g/dL (32.0-36.0); Mean Corpuscular Hemoglobin 31.9 pg (27.0-31.0); Mean Platelet Volume 10.2 fL (7.4-10.4); Platelet Count 187 10x3/uL (130-400); RBC Distribution Width 13.6 % (11.5-14.5); Red Blood Cell (RBC) Count 2.26 mill/uL (4.20-5.40); White Blood Cell (WBC) Count 9.2 10x3/uL (4.8-10.8)
[2022-11-21 10:03] LABS: ALT (SGPT) 10 U/L (8-55); AST (SGOT) 12 U/L (5-34); Albumin 3.8 g/dL (3.5-5.0); Alkaline Phosphatase 67 U/L (40-110); Anion Gap 29 mmol/L (10-20); BUN (Urea Nitrogen) 108 mg/dL (7.0-18.7); Bilirubin, Total 0.7 mg/dL (0.2-1.2); Calcium 7.8 mg/dL (7.8-10.44); Carbon Dioxide 10 mmol/L (22-29); Chloride 105 mmol/L (98-107); Globulin 2.9 g/dL (2.4-3.5); Glucose 66 mg/dL (70-105); Potassium 5.7 mmol/L (3.5-5.1); Protein, Total 6.7 g/dL (6.0-8.3); Sodium 138 mmol/L (136-145)
[2022-11-21 10:10] LABS: Calc. Creatinine Clearance 0 mL/min (70-130)
[2022-11-21 11:42] LABS: HBSAB Concentration Less than 8.00 mIU/mL; HBSAg Index 0.26 S/CO (0-0.99); Hep B Core Total Ab Non-Reactive (NonReactive); Hep B Core Total Index 0.14 S/CO (0-0.79); Hep B Surf AB Non-Reactive (NonReactive); Hep B Surf Ag Non-Reactive S/CO (NonReactive); Hep C IgG Ab Non-Reactive S/CO (NonReactive); Hep C Index 0.07 S/CO (0-0.79)
[2022-11-21] MEDS ORDERED: Heparin 10,000 UNITS/ 10 ML VIAL ONE (12:34)
[2022-11-21] MEDS ORDERED: Epoetin (ESRD) 10,000 UNITS/ML VIAL SC SCH (20:00)
[2022-11-21] MEDS ORDERED: Iron, Sodium Ferric Gluconate 250 MG in Sodium Chloride 0.9% 250 ML 250 ML IVPB SCH (20:00)
== END 2022-11-21 17:26 | disposition home or self-care (01) ==
LOC: ERS 09:15
DX: I12.0 Hypertensive chronic kidney disease with stage 5 chronic kidney disease or end stage renal disease (principal); N18.6 End stage renal disease; E87.5 Hyperkalemia; Z99.2 Dependence on renal dialysis
CPT/HCPCS: 36415; 71045; 80053; 85025; 86704; 90935; 93005; G0257; J1644

== ENCOUNTER 2022-11-30 08:59 | Emergency (ER) | payer SELFPAY ==
[2022-11-30 10:13] LABS: Hematocrit 20.2 % (36.0-47.0); Hemoglobin 6.5 g/dL (12.0-16.0); Mean Corpuscular HGB CONC 32.2 g/dL (32.0-36.0); Mean Corpuscular Hemoglobin 31.3 pg (27.0-31.0); Mean Corpuscular Volume 97.1 fl (78.0-98.0); Mean Platelet Volume 9.7 fL (7.4-10.4); Platelet Count 162 10x3/uL (130-400); RBC Distribution Width 13.5 % (11.5-14.5); Red Blood Cell (RBC) Count 2.08 mill/uL (4.20-5.40); White Blood Cell (WBC) Count 8.3 10x3/uL (4.8-10.8)
[2022-11-30 10:14] LABS: Delete Auto Diff?? YES; Manual Diff?? YES
[2022-11-30 10:33] LABS: CellaVision Operator ID LAB.GE; Eosinophils 14 % (0-10); Lymphocytes 15 % (21-51); Neutrophil 71 % (42-75); Platelet Adequacy Comment Platelets Normal; Polychromasia SLIGHT = 2-3 cells HPF (0-2); Total Cell Count 99
[2022-11-30 10:38] LABS: ALT (SGPT) 13 U/L (8-55); AST (SGOT) 13 U/L (5-34); Albumin 3.8 g/dL (3.5-5.0); Alkaline Phosphatase 69 U/L (40-110); Anion Gap 24 mmol/L (10-20); BUN (Urea Nitrogen) 83 mg/dL (7.0-18.7); Bilirubin, Total 0.7 mg/dL (0.2-1.2); Calc. Creatinine Clearance 0 mL/min (70-130); Calcium 7.5 mg/dL (7.8-10.44); Carbon Dioxide 15 mmol/L (22-29); Chloride 102 mmol/L (98-107); Estimated GFR 2; Globulin 2.8 g/dL (2.4-3.5); Glucose 90 mg/dL (70-105); Potassium 5.2 mmol/L (3.5-5.1); Protein, Total 6.6 g/dL (6.0-8.3); Sodium 136 mmol/L (136-145)
[2022-11-30] MEDS ORDERED: Iron, Sodium Ferric Gluconate 250 MG in Sodium Chloride 0.9% 250 ML 250 ML IVPB STA (12:49)
[2022-11-30] MEDS ORDERED: Epoetin (ESRD) 10,000 UNITS/ML VIAL SC SCH (14:00)
[2022-11-30] MEDS ORDERED: EPOETIN ALFA-EPBX (ESRD) 10,000 UNITS/ML VIAL SC SCH (14:00)
[2022-11-30] MEDS ORDERED: Epoetin (ESRD) 10,000 UNITS/ML VIAL IVP SCH (17:30)
[2022-11-30] MEDS ORDERED: Iron, Sodium Ferric Gluconate 250 MG in Sodium Chloride 0.9% 250 ML 250 ML IVPB SCH (17:30)
== END 2022-11-30 20:49 | disposition home or self-care (01) ==
LOC: ERS 08:59
DX: D64.9 Anemia, unspecified (principal); I12.0 Hypertensive chronic kidney disease with stage 5 chronic kidney disease or end stage renal disease; N18.6 End stage renal disease; E87.5 Hyperkalemia; Z99.2 Dependence on renal dialysis
CPT/HCPCS: 36415; 36430; 80053; 85025; 86850; 86900; 86901; 93005; J2916; J7050; P9016; Q4081; Q5105

== ENCOUNTER 2022-12-07 08:40 | Emergency (ER) | payer MEDICAID ==
[2022-12-07 09:34] LABS: #Basophils 0.1 thou/uL (0.0-0.2); #Eosinphils 0.6 thou/uL (0.0-0.7); #Monocytes 0.5 thou/uL (0.11-0.59); %Basophils 0.6 % (0.0-1.0); %Eosinophils 6.8 % (0.0-10.0); %Lymphocytes 19.1 % (21.0-51.0); %Monocytes 5.2 % (0.0-10.0); %Neutrophils 68.1 % (42.0-75.0); Hematocrit 22.2 % (36.0-47.0); Hemoglobin 7.3 g/dL (12.0-16.0); Mean Corpuscular HGB CONC 32.9 g/dL (32.0-36.0); Mean Corpuscular Hemoglobin 31.6 pg (27.0-31.0); Mean Corpuscular Volume 96.1 fl (78.0-98.0); Mean Platelet Volume 10.1 fL (7.4-10.4); Platelet Count 171 10x3/uL (130-400); RBC Distribution Width 13.7 % (11.5-14.5); Red Blood Cell (RBC) Count 2.31 mill/uL (4.20-5.40); White Blood Cell (WBC) Count 8.9 10x3/uL (4.8-10.8)
[2022-12-07] MEDS ORDERED: NIFEdipine XL 30 MG ER.TAB ONE (09:55)
[2022-12-07 09:57] LABS: ALT (SGPT) 7 U/L (8-55); AST (SGOT) 11 U/L (5-34); Albumin 3.7 g/dL (3.5-5.0); Alkaline Phosphatase 54 U/L (40-110); Anion Gap 21 mmol/L (10-20); BUN (Urea Nitrogen) 81 mg/dL (7.0-18.7); Bilirubin, Total 0.6 mg/dL (0.2-1.2); Calc. Creatinine Clearance 0 mL/min (70-130); Calcium 8.4 mg/dL (7.8-10.44); Carbon Dioxide 17 mmol/L (22-29); Chloride 104 mmol/L (98-107); Estimated GFR 2; Globulin 2.6 g/dL (2.4-3.5); Glucose 78 mg/dL (70-105); Potassium 4.7 mmol/L (3.5-5.1); Protein, Total 6.3 g/dL (6.0-8.3); Sodium 137 mmol/L (136-145)
[2022-12-07 11:01] LABS: BHCG - Serum Negative (NEGATIVE); Pregs Control Background? CLEAR/WHITE (CLR/WHITE); Pregs Control Bar Appear? YES (CONTROL BAR)
[2022-12-07] MEDS ORDERED: Iron, Sodium Ferric Gluconate 250 MG in Sodium Chloride 0.9% 250 ML 250 ML IVPB SCH (11:25)
[2022-12-07] MEDS ORDERED: Epoetin (ESRD) 10,000 UNITS/ML VIAL IVP SCH (11:30)
[2022-12-07] MEDS ORDERED: Metoprolol Tartrate 50 MG TAB ONE (11:39)
[2022-12-07] MEDS ORDERED: Acetaminophen 500 MG TAB ONE (17:43)
== END 2022-12-07 17:51 | disposition home or self-care (01) ==
LOC: ERS 08:40
DX: T85.71XA Infection and inflammatory reaction due to peritoneal dialysis catheter, initial encounter (principal); I12.0 Hypertensive chronic kidney disease with stage 5 chronic kidney disease or end stage renal disease; N18.6 End stage renal disease; D63.1 Anemia in chronic kidney disease; Z99.2 Dependence on renal dialysis; Z79.899 Other long term (current) drug therapy
CPT/HCPCS: 36415; 71045; 80053; 84703; 85025; 87040; 87070; 87205; 90935; 93005; G0257; J2916; J7050

== ENCOUNTER 2022-12-20 11:36 | Emergency (ER) | payer MEDICAID, SELFPAY ==
[2022-12-20 12:26] LABS: #Monocytes 0.5 thou/uL (0.11-0.59); #Neutrophils 5.8 thou/uL (1.40-6.50); %Basophils 0.3 % (0.0-1.0); %Eosinophils 10.3 % (0.0-10.0); %Lymphocytes 23.1 % (21.0-51.0); %Monocytes 4.9 % (0.0-10.0); %Neutrophils 61.2 % (42.0-75.0); Hematocrit 29.6 % (36.0-47.0); Hemoglobin 10.1 g/dL (12.0-16.0); Mean Corpuscular HGB CONC 34.1 g/dL (32.0-36.0); Mean Corpuscular Hemoglobin 32.1 pg (27.0-31.0); Mean Platelet Volume 9.7 fL (7.4-10.4); Platelet Count 263 10x3/uL (130-400); RBC Distribution Width 14.1 % (11.5-14.5); Red Blood Cell (RBC) Count 3.15 mill/uL (4.20-5.40); White Blood Cell (WBC) Count 9.5 10x3/uL (4.8-10.8)
[2022-12-20 12:51] LABS: Phosphorus 6.9 mg/dL (2.3-4.7)
[2022-12-20 12:56] LABS: ALT (SGPT) Less than 7 U/L (8-55); AST (SGOT) 13 U/L (5-34); Albumin 4.1 g/dL (3.5-5.0); Alkaline Phosphatase 66 U/L (40-110); Anion Gap 26 mmol/L (10-20); BUN (Urea Nitrogen) 76 mg/dL (7.0-18.7); Bilirubin, Total 0.7 mg/dL (0.2-1.2); Calc. Creatinine Clearance 0 mL/min (70-130); Calcium 9.2 mg/dL (7.8-10.44); Carbon Dioxide 18 mmol/L (22-29); Chloride 102 mmol/L (98-107); Estimated GFR 2; Globulin 3.2 g/dL (2.4-3.5); Glucose 88 mg/dL (70-105); Magnesium 2.5 mg/dL (1.6-2.6); Potassium 4.6 mmol/L (3.5-5.1); Protein, Total 7.3 g/dL (6.0-8.3); Sodium 141 mmol/L (136-145)
== END 2022-12-20 20:18 | disposition home or self-care (01) ==
LOC: ERS 11:36
DX: N17.9 Acute kidney failure, unspecified (principal); I12.0 Hypertensive chronic kidney disease with stage 5 chronic kidney disease or end stage renal disease; N18.6 End stage renal disease; Z99.2 Dependence on renal dialysis
CPT/HCPCS: 36415; 71045; 80053; 83735; 84100; 85025; 90935; G0257; J1644

== ENCOUNTER 2022-12-28 11:01 | Emergency (ER) | payer MEDICAID ==
[2022-12-28] MEDS ORDERED: Heparin 10,000 UNITS/ 10 ML VIAL ONE (11:47)
[2022-12-28 13:22] LABS: ALT (SGPT) 7 U/L (8-55); AST (SGOT) 16 U/L (5-34); Albumin 4.6 g/dL (3.5-5.0); Alkaline Phosphatase 72 U/L (40-110); Anion Gap 26 mmol/L (10-20); BUN (Urea Nitrogen) 107 mg/dL (7.0-18.7); Bilirubin, Total 0.7 mg/dL (0.2-1.2); Calc. Creatinine Clearance 0 mL/min (70-130); Calcium 9.1 mg/dL (7.8-10.44); Carbon Dioxide 19 mmol/L (22-29); Chloride 97 mmol/L (98-107); Estimated GFR 2; Glucose 82 mg/dL (70-105); Protein, Total 7.6 g/dL (6.0-8.3); Sodium 135 mmol/L (136-145)
[2022-12-28 13:32] LABS: #Basophils 0.1 thou/uL (0.0-0.2); #Eosinphils 0.6 thou/uL (0.0-0.7); #Monocytes 0.4 thou/uL (0.11-0.59); #Neutrophils 5.8 thou/uL (1.40-6.50); %Basophils 0.6 % (0.0-1.0); %Eosinophils 7.2 % (0.0-10.0); %Lymphocytes 19.9 % (21.0-51.0); %Monocytes 4.5 % (0.0-10.0); %Neutrophils 67.6 % (42.0-75.0); Hematocrit 27.9 % (36.0-47.0); Hemoglobin 9.5 g/dL (12.0-16.0); Mean Corpuscular HGB CONC 34.1 g/dL (32.0-36.0); Mean Corpuscular Hemoglobin 32.3 pg (27.0-31.0); Mean Corpuscular Volume 94.9 fl (78.0-98.0); Mean Platelet Volume 10.9 fL (7.4-10.4); Platelet Count 249 10x3/uL (130-400); RBC Distribution Width 13.5 % (11.5-14.5); Red Blood Cell (RBC) Count 2.94 mill/uL (4.20-5.40); White Blood Cell (WBC) Count 8.6 10x3/uL (4.8-10.8)
[2022-12-28 13:36] LABS: Potassium 6.9 mmol/L (3.5-5.1)
[2022-12-28] MEDS ORDERED: Insulin Regular 300 UNITS/3 ML VIAL ONE (14:51)
[2022-12-28] MEDS ORDERED: Dextrose 50% Abboject 50 ML SYRINGE ONE (14:51)
[2022-12-28] MEDS ORDERED: Calcium Chloride 1 GM/10 ML Abboject SYRINGE ONE (14:51)
[2022-12-28] MEDS ORDERED: Sodium Bicarb 50 MEQ/50 ML VIAL ONE (14:52)
[2022-12-28] MEDS ORDERED: levETIRAcetam 500 MG/5 ML VIAL ONE (16:19)
== END 2022-12-28 22:45 | disposition home or self-care (01) ==
LOC: ERS 11:01
DX: I12.0 Hypertensive chronic kidney disease with stage 5 chronic kidney disease or end stage renal disease (principal); N18.6 End stage renal disease; Z99.2 Dependence on renal dialysis
CPT/HCPCS: 36416; 80053; 83605; 85025; 96374; 96375; J1644; J1815; J1953; J7999

== ENCOUNTER 2023-01-04 09:08 | Emergency (ER) | payer MEDICAID ==
[2023-01-04 10:01] LABS: #Eosinphils 0.4 thou/uL (0.0-0.7); #Monocytes 0.3 thou/uL (0.11-0.59); #Neutrophils 5.9 thou/uL (1.40-6.50); %Basophils 0.5 % (0.0-1.0); %Eosinophils 5.3 % (0.0-10.0); %Lymphocytes 16.4 % (21.0-51.0); %Neutrophils 73.4 % (42.0-75.0); Hematocrit 23.9 % (36.0-47.0); Hemoglobin 7.8 g/dL (12.0-16.0); Mean Corpuscular HGB CONC 32.6 g/dL (32.0-36.0); Mean Corpuscular Hemoglobin 31.6 pg (27.0-31.0); Mean Corpuscular Volume 96.8 fl (78.0-98.0); Mean Platelet Volume 11.1 fL (7.4-10.4); Platelet Count 165 10x3/uL (130-400); RBC Distribution Width 13.1 % (11.5-14.5); Red Blood Cell (RBC) Count 2.47 mill/uL (4.20-5.40)
[2023-01-04 10:41] LABS: ALT (SGPT) 18 U/L (8-55); AST (SGOT) 20 U/L (5-34); Albumin 4.3 g/dL (3.5-5.0); Alkaline Phosphatase 78 U/L (40-110); Anion Gap 25 mmol/L (10-20); BUN (Urea Nitrogen) 78 mg/dL (7.0-18.7); Bilirubin, Total 0.8 mg/dL (0.2-1.2); Calc. Creatinine Clearance 0 mL/min (70-130); Calcium 8.1 mg/dL (7.8-10.44); Carbon Dioxide 20 mmol/L (22-29); Chloride 98 mmol/L (98-107); Estimated GFR 2; Globulin 2.4 g/dL (2.4-3.5); Glucose 100 mg/dL (70-105); Potassium 5.7 mmol/L (3.5-5.1); Protein, Total 6.7 g/dL (6.0-8.3); Sodium 137 mmol/L (136-145)
[2023-01-04] MEDS ORDERED: Epoetin (ESRD) 10,000 UNITS/ML VIAL SC SCH (13:00)
[2023-01-04] MEDS ORDERED: Iron, Sodium Ferric Gluconate 250 MG, Admixture Fee 1 EACH in Sodium Chloride 0.9% 250 ... IVPB SCH (14:00)
== END 2023-01-04 21:07 | disposition home or self-care (01) ==
LOC: ERS 09:08
DX: I12.0 Hypertensive chronic kidney disease with stage 5 chronic kidney disease or end stage renal disease (principal); N18.6 End stage renal disease; E87.5 Hyperkalemia; Z99.2 Dependence on renal dialysis; Z79.899 Other long term (current) drug therapy
CPT/HCPCS: 36415; 80053; 85025; 90935; 93005; 96365; 96372; G0257; J1644; J2916; J7050; Q4081

== ENCOUNTER 2023-01-10 09:46 | Emergency (ER) | payer MEDICAID ==
[2023-01-10 10:58] LABS: #Eosinphils 0.7 thou/uL (0.0-0.7); #Monocytes 0.4 thou/uL (0.11-0.59); #Neutrophils 5.6 thou/uL (1.40-6.50); %Basophils 0.2 % (0.0-1.0); %Eosinophils 8.7 % (0.0-10.0); %Lymphocytes 18.2 % (21.0-51.0); %Monocytes 4.6 % (0.0-10.0); %Neutrophils 68.2 % (42.0-75.0); Hematocrit 25.5 % (36.0-47.0); Hemoglobin 8.4 g/dL (12.0-16.0); Mean Corpuscular HGB CONC 32.9 g/dL (32.0-36.0); Mean Corpuscular Hemoglobin 32.1 pg (27.0-31.0); Mean Corpuscular Volume 97.3 fl (78.0-98.0); Mean Platelet Volume 10.2 fL (7.4-10.4); Platelet Count 194 10x3/uL (130-400); Red Blood Cell (RBC) Count 2.62 mill/uL (4.20-5.40); White Blood Cell (WBC) Count 8.2 10x3/uL (4.8-10.8)
[2023-01-10 11:20] LABS: ALT (SGPT) 18 U/L (8-55); AST (SGOT) 19 U/L (5-34); Albumin 4.6 g/dL (3.5-5.0); Alkaline Phosphatase 94 U/L (40-110); Anion Gap 23 mmol/L (10-20); BUN (Urea Nitrogen) 85 mg/dL (7.0-18.7); Bilirubin, Total 0.7 mg/dL (0.2-1.2); Calc. Creatinine Clearance 0 mL/min (70-130); Calcium 8.6 mg/dL (7.8-10.44); Carbon Dioxide 19 mmol/L (22-29); Chloride 100 mmol/L (98-107); Estimated GFR 2; Globulin 2.6 g/dL (2.4-3.5); Glucose 83 mg/dL (70-105); Potassium 5.1 mmol/L (3.5-5.1); Protein, Total 7.2 g/dL (6.0-8.3); Sodium 137 mmol/L (136-145)
[2023-01-10 13:30] LABS: HBSAB Concentration Less than 8.00 mIU/mL; HBSAg Index 0.21 S/CO (0-0.99); Hep B Core Total Ab Non-Reactive (NonReactive); Hep B Core Total Index 0.12 S/CO (0-0.79); Hep B Surf AB Non-Reactive (NonReactive); Hep B Surf Ag Non-Reactive S/CO (NonReactive); Hep C IgG Ab Non-Reactive S/CO (NonReactive); Hep C Index 0.09 S/CO (0-0.79)
== END 2023-01-10 19:55 | disposition home or self-care (01) ==
LOC: ERS 09:46
DX: E87.70 Fluid overload, unspecified (principal); I12.0 Hypertensive chronic kidney disease with stage 5 chronic kidney disease or end stage renal disease; N18.6 End stage renal disease; Z99.2 Dependence on renal dialysis
CPT/HCPCS: 36415; 71045; 80053; 85025; 86704; 90935; 93005; G0257

== ENCOUNTER 2023-01-18 10:29 | Inpatient (IN) | payer MEDICAID ==
[2023-01-18 11:13] LABS: #Eosinphils 0.5 thou/uL (0.0-0.7); #Monocytes 0.3 thou/uL (0.11-0.59); #Neutrophils 4.8 thou/uL (1.40-6.50); %Basophils 0.5 % (0.0-1.0); %Eosinophils 6.8 % (0.0-10.0); %Lymphocytes 22.8 % (21.0-51.0); %Monocytes 4.6 % (0.0-10.0); %Neutrophils 65.2 % (42.0-75.0); Hematocrit 22.2 % (36.0-47.0); Hemoglobin 7.6 g/dL (12.0-16.0); Mean Corpuscular HGB CONC 34.2 g/dL (32.0-36.0); Mean Corpuscular Hemoglobin 31.9 pg (27.0-31.0); Mean Corpuscular Volume 93.3 fl (78.0-98.0); Platelet Count 182 10x3/uL (130-400); RBC Distribution Width 13.1 % (11.5-14.5); Red Blood Cell (RBC) Count 2.38 mill/uL (4.20-5.40); White Blood Cell (WBC) Count 7.3 10x3/uL (4.8-10.8)
[2023-01-18 11:47] LABS: ALT (SGPT) 13 U/L (8-55); AST (SGOT) 13 U/L (5-34); Albumin 4.4 g/dL (3.5-5.0); Alkaline Phosphatase 68 U/L (40-110); Anion Gap 27 mmol/L (10-20); BUN (Urea Nitrogen) 112 mg/dL (7.0-18.7); Bilirubin, Total 0.5 mg/dL (0.2-1.2); Calc. Creatinine Clearance 0 mL/min (70-130); Calcium 8.1 mg/dL (7.8-10.44); Carbon Dioxide 16 mmol/L (22-29); Chloride 98 mmol/L (98-107); Estimated GFR 2; Globulin 2.4 g/dL (2.4-3.5); Glucose 81 mg/dL (70-105); Magnesium 2.7 mg/dL (1.6-2.6); Potassium 5.2 mmol/L (3.5-5.1); Protein, Total 6.8 g/dL (6.0-8.3); Sodium 136 mmol/L (136-145)
[2023-01-18 11:52] LABS: Phosphorus 10.9 mg/dL (2.3-4.7)
[2023-01-18] MEDS ORDERED: Ondansetron PF 4 MG/2 ML Vial IVP PRN (12:20)
[2023-01-18] MEDS ORDERED: Senokot S 8.6-50 MG TAB PO PRN (12:20)
[2023-01-18] MEDS ORDERED: Calcium Carbonate 500 MG ChewTAB PO PRN (12:20)
[2023-01-18] MEDS ORDERED: Tuberculin PPD 0.1 ML VIAL I-DERMAL SCH ×2 (13:45)
[2023-01-18] MEDS: Sevelamer Carbonate 800 MG TAB PO SCH (18:41)
[2023-01-18] MEDS: NIFEdipine XL 30 MG ER.TAB PO SCH (19:08)
[2023-01-18] MEDS: Metoprolol Tartrate 100 MG TAB PO SCH (19:09)
[2023-01-18] MEDS ORDERED: levETIRAcetam 500 MG TAB PO SCH (21:00)
[2023-01-18] MEDS: Acetaminophen 325 MG TAB PO PRN (21:26)
[2023-01-19] MEDS: hydrALAZINE 20 MG/ML VIAL SLOW IVP PRN ×2 (04:00→13:28)
[2023-01-19 04:04] LABS: #Eosinphils 0.3 thou/uL (0.0-0.7); #Monocytes 0.4 thou/uL (0.11-0.59); #Neutrophils 3.5 thou/uL (1.40-6.50); %Basophils 0.5 % (0.0-1.0); %Eosinophils 5.1 % (0.0-10.0); %Lymphocytes 28.6 % (21.0-51.0); %Monocytes 6.9 % (0.0-10.0); %Neutrophils 58.7 % (42.0-75.0); Hematocrit 23.1 % (36.0-47.0); Hemoglobin 8.2 g/dL (12.0-16.0); Mean Corpuscular HGB CONC 35.5 g/dL (32.0-36.0); Mean Corpuscular Hemoglobin 31.5 pg (27.0-31.0); Mean Platelet Volume 10.9 fL (7.4-10.4); Platelet Count 188 10x3/uL (130-400); RBC Distribution Width 12.8 % (11.5-14.5); White Blood Cell (WBC) Count 5.9 10x3/uL (4.8-10.8)
[2023-01-19 04:12] LABS: Mean Corpuscular Volume 88.8 fl (78.0-98.0)
[2023-01-19 04:31] LABS: Anion Gap 17 mmol/L (10-20); BUN (Urea Nitrogen) 29 mg/dL (7.0-18.7); BUN/Creatinine Ratio 2.73; Calc. Creatinine Clearance 8 mL/min (70-130); Calcium 8.5 mg/dL (7.8-10.44); Carbon Dioxide 27 mmol/L (22-29); Chloride 95 mmol/L (98-107); Estimated GFR 4; Glucose 77 mg/dL (70-105); Iron 125 ug/dL (50-170); Iron Binding Capacity, Total 179 mcg/dL (265-497); Phosphorus 5.3 mg/dL (2.3-4.7); Potassium 3.5 mmol/L (3.5-5.1); Sodium 135 mmol/L (136-145)
[2023-01-19 04:33] LABS: Magnesium 1.9 mg/dL (1.6-2.6)
[2023-01-19 04:56] LABS: Vitamin D, 25 Hydroxy 30.1 ng/ml (> 30.0)
[2023-01-19] MEDS: Sevelamer Carbonate 800 MG TAB PO SCH ×3 (08:38→18:02)
[2023-01-19] MEDS: NIFEdipine XL 30 MG ER.TAB PO SCH (08:38)
[2023-01-19] MEDS: Calcitriol 0.25 MCG CAP PO SCH (08:38)
[2023-01-19] MEDS: Metoprolol Tartrate 100 MG TAB PO SCH ×2 (08:38→20:08)
[2023-01-19] MEDS ORDERED: Epoetin (ESRD) 10,000 UNITS/ML VIAL IVP SCH (09:00)
[2023-01-19] MEDS: Acetaminophen 325 MG TAB PO PRN (13:27)
[2023-01-19] MEDS ORDERED: NIFEdipine XL 30 MG ER.TAB PO SCH (13:30)
[2023-01-19 18:13] VITALS: BMI 23.5
[2023-01-19] MEDS: NIFEdipine XL 60 MG ER.TAB PO SCH (20:07)
[2023-01-19] MEDS: levETIRAcetam 500 MG TAB PO SCH (20:08)
[2023-01-20 05:05] LABS: Anion Gap 21 mmol/L (10-20); BUN (Urea Nitrogen) 17 mg/dL (7.0-18.7); Calc. Creatinine Clearance 10 mL/min (70-130); Carbon Dioxide 25 mmol/L (22-29); Chloride 96 mmol/L (98-107); Potassium 3.9 mmol/L (3.5-5.1); Sodium 138 mmol/L (136-145)
[2023-01-20 05:06] LABS: Albumin 4.4 g/dL (3.5-5.0); BUN/Creatinine Ratio 2.19; Calcium 9.3 mg/dL (7.8-10.44); Estimated GFR 7; Glucose 71 mg/dL (70-105); Phosphorus 5.5 mg/dL (2.3-4.7)
[2023-01-20] MEDS: Sevelamer Carbonate 800 MG TAB PO SCH ×3 (09:44→18:06)
[2023-01-20] MEDS: NIFEdipine XL 60 MG ER.TAB PO SCH (09:44)
[2023-01-20] MEDS: Metoprolol Tartrate 100 MG TAB PO SCH (09:45)
[2023-01-20] MEDS: Calcitriol 0.25 MCG CAP PO SCH (09:45)
[2023-01-20] MEDS: levETIRAcetam 500 MG TAB PO SCH (09:45)
[2023-01-20] MEDS ORDERED: Tuberculin PPD 0.1 ML VIAL I-DERMAL SCH (11:15)
[2023-01-20] MEDS ORDERED: Lidocaine 1% w/Epinephrine 1:100K 20 ML VIAL NERVE BLCK SCH (14:15)
[2023-01-20 15:09] LABS: BHCG - Serum Negative (NEGATIVE); Pregs Control Background? CLEAR/WHITE (CLR/WHITE); Pregs Control Bar Appear? YES (CONTROL BAR)
[2023-01-20 18:41] VITALS: BP 136/69; TEMP 98.4
[2023-01-21] MEDS ORDERED: READ PPD TEST SITE PO SCH (09:00)
[2023-01-22] MEDS ORDERED: READ PPD TEST SITE PO SCH (09:00)
== END 2023-01-20 19:08 | disposition home or self-care (01) | DRG 682 ==
LOC: ERS 10:29 → SUATTDRO 10:29 → 2NO 12:20
PROVIDERS: ADMIT Internal Medicine; ATTEND Internal Medicine
PROC: 5A1D70Z Performance of Urinary Filtration, Intermittent, Less than 6 Hours Per Day (ICD-10-PCS; principal; 2023-01-19)
DX: I12.0 Hypertensive chronic kidney disease with stage 5 chronic kidney disease or end stage renal disease (principal); N18.6 End stage renal disease; E87.1 Hypo-osmolality and hyponatremia; E87.20 Acidosis, unspecified; N25.81 Secondary hyperparathyroidism of renal origin; E83.42 Hypomagnesemia; E83.39 Other disorders of phosphorus metabolism; D63.1 Anemia in chronic kidney disease; N25.0 Renal osteodystrophy; I16.0 Hypertensive urgency; Z79.899 Other long term (current) drug therapy; Z99.2 Dependence on renal dialysis
CPT/HCPCS: 36415; 71045; 71046; 80053; 80069; 82306; 82728; 83540; 83550; 83735; 83970; 84100; 84703; 85025; 90935; 93005; G0257; J0360; J2405; Q4081

== ENCOUNTER 2023-03-06 09:28 | Observation (INO) | payer MEDICAID ==
[2023-03-06] MEDS ORDERED: Vancomycin (BATCH) 1.5 GM in Premix 1 BAG IVPB SCH (10:45)
[2023-03-06] MEDS ORDERED: Cefepime 0.5 GM, Admixture Fee 1 EACH in Sodium Chloride 0.9% 100 ML IVPB SCH (11:00)
[2023-03-06] MEDS ORDERED: Cefepime 0.5 GM in Admixture Fee 1 EACH IVPB SCH (11:00)
[2023-03-06 11:06] LABS: #Eosinphils 0.4 thou/uL (0.0-0.7); #Monocytes 0.6 thou/uL (0.11-0.59); #Neutrophils 7.9 thou/uL (1.40-6.50); %Basophils 0.3 % (0.0-1.0); %Eosinophils 3.6 % (0.0-10.0); %Lymphocytes 18.2 % (21.0-51.0); %Monocytes 5.4 % (0.0-10.0); %Neutrophils 72.1 % (42.0-75.0); Hematocrit 24.4 % (36.0-47.0); Hemoglobin 8.1 g/dL (12.0-16.0); Mean Corpuscular HGB CONC 33.2 g/dL (32.0-36.0); Mean Corpuscular Hemoglobin 33.5 pg (27.0-31.0); Mean Corpuscular Volume 100.8 fl (78.0-98.0); Mean Platelet Volume 11.5 fL (7.4-10.4); Platelet Count 167 10x3/uL (130-400); RBC Distribution Width 13.9 % (11.5-14.5); Red Blood Cell (RBC) Count 2.42 mill/uL (4.20-5.40); White Blood Cell (WBC) Count 10.9 10x3/uL (4.8-10.8)
[2023-03-06 11:28] LABS: Bilirubin Small (Negative); Blood, Urine Large (Negative); Glucose, Urine (Dipstick) 100 mg/dL (Negative); Ketone, Urine Trace mg/dL (Negative); Leukocyte Small (Negative); Nitrite Positive (Negative); Protein, Urine (Dipstick) > or equal to 300 mg/dL (Neg-Trace); Specific Gravity, Urine 1.015 (1.005-1.030); pH, Urine 8.5 (5.0-9.0)
[2023-03-06 11:30] LABS: Clarity Bloody (Clear)
[2023-03-06 11:32] LABS: CAUTI Indications for Culture Fever or rigors; RBC/HPF Greater than 50 HPF (0-3)
[2023-03-06 11:33] LABS: Bacteria/HPF 2+ HPF (None Seen); Pregnancy Test - Urine (BHCG) Negative (Negative); Pregu Control Background? CLEAR/WHITE (CLR/WHITE); Pregu Control Bar Appear? YES (CONTROL BAR); Specific Gravity 1.015 (1.002-1.036); Sperm/HPF 3+ HPF (None Seen); Urine Culture Reflex No No
[2023-03-06 11:35] LABS: ALT (SGPT) 8 U/L (8-55); AST (SGOT) 13 U/L (5-34); Alkaline Phosphatase 77 U/L (40-110); Anion Gap 19 mmol/L (10-20); BUN (Urea Nitrogen) 47 mg/dL (7.0-18.7); Bilirubin, Total 0.7 mg/dL (0.2-1.2); Calc. Creatinine Clearance 0 mL/min (70-130); Calcium 8.9 mg/dL (7.8-10.44); Carbon Dioxide 27 mmol/L (22-29); Chloride 98 mmol/L (98-107); Estimated GFR 4; Globulin 3.3 g/dL (2.4-3.5); Glucose 90 mg/dL (70-105); Potassium 4.1 mmol/L (3.5-5.1); Protein, Total 7.3 g/dL (6.0-8.3); Sodium 140 mmol/L (136-145)
[2023-03-06] MEDS ORDERED: Acetaminophen 325 MG TAB PO PRN (12:51)
[2023-03-06] MEDS ORDERED: Vancomycin Hemodialysis Sliding Scale FS SCH (13:30)
[2023-03-06] MEDS ORDERED: VANCOMYCIN IVPB PRN (14:17)
[2023-03-06 17:32] LABS: HBSAB Concentration Less than 8.00 mIU/mL; Hep B Core Total Ab Non-Reactive (NonReactive); Hep B Core Total Index 0.13 S/CO (0-0.79); Hep B Surf AB Non-Reactive (NonReactive); Hep C IgG Ab Non-Reactive S/CO (NonReactive); Hep C Index 0.09 S/CO (0-0.79)
[2023-03-06] MEDS ORDERED: cloNIDine 0.1 MG TAB PO PRN (18:32)
[2023-03-06 19:08] LABS: HBSAg Index 5.08 S/CO (0-0.99)
[2023-03-06 19:11] LABS: Hep B Surf Ag Reflx Confirmation S/CO (NonReactive)
[2023-03-06] MEDS ORDERED: Vancomycin 1 GM in Premix 1 BAG IVPB SCH (21:00)
[2023-03-07 06:06] LABS: #Eosinphils 0.3 thou/uL (0.0-0.7); #Monocytes 0.4 thou/uL (0.11-0.59); #Neutrophils 4.4 thou/uL (1.40-6.50); %Basophils 0.5 % (0.0-1.0); %Lymphocytes 21.2 % (21.0-51.0); %Monocytes 5.3 % (0.0-10.0); %Neutrophils 67.7 % (42.0-75.0); Hematocrit 23.5 % (36.0-47.0); Hemoglobin 7.7 g/dL (12.0-16.0); Mean Corpuscular HGB CONC 32.8 g/dL (32.0-36.0); Mean Corpuscular Volume 100.9 fl (78.0-98.0); Mean Platelet Volume 10.7 fL (7.4-10.4); Platelet Count 150 10x3/uL (130-400); RBC Distribution Width 13.9 % (11.5-14.5); Red Blood Cell (RBC) Count 2.33 mill/uL (4.20-5.40); White Blood Cell (WBC) Count 6.6 10x3/uL (4.8-10.8)
[2023-03-07] MEDS ORDERED: EPINEPHrine 1 MG/ML VIAL ONE (09:23)
[2023-03-07] MEDS ORDERED: Lidocaine 2% PF 5 ML VIAL ONE (09:23)
[2023-03-07] MEDS ORDERED: Bupivacaine PF 0.5% 30 ML VIAL ONE (09:23)
[2023-03-07] MEDS ORDERED: Midazolam HCl 2 mg/2 ml Vial ONE (09:56)
[2023-03-07] MEDS ORDERED: fentaNYL PF 100 MCG/2 ML SYRINGE ONE (09:56)
[2023-03-07] MEDS ORDERED: PROPOFOL 20 ML ONE (10:01)
[2023-03-07] MEDS ORDERED: diphenhydrAMINE 50 MG/ML VIAL ONE ×2 (10:02→10:11)
[2023-03-07] MEDS ORDERED: Ondansetron PF 4 MG/2 ML Vial ONE (10:11)
[2023-03-07] MEDS ORDERED: Ondansetron HCl/PF 4 MG/2 ML Vial IVP PRN (10:33)
[2023-03-07] MEDS ORDERED: Promethazine HCl 25 MG/ML VIAL IM PRN (10:33)
[2023-03-07] MEDS ORDERED: Cefepime 0.5 GM, Admixture Fee 1 EACH in Sodium Chloride 0.9% 100 ML IVPB SCH ×2 (13:00→17:00)
[2023-03-07] MEDS: Sevelamer Carbonate 800 MG TAB PO SCH (16:47)
[2023-03-07] MEDS ORDERED: Cefepime 1 GM in Sodium Chloride 0.9% 100 ML IVPB SCH (17:00)
[2023-03-07] MEDS ORDERED: NIFEdipine XL 60 MG ER.TAB PO SCH (21:00)
[2023-03-07] MEDS: NIFEdipine XL 30 MG ER.TAB PO SCH (22:18)
[2023-03-07] MEDS: levETIRAcetam 500 MG TAB PO SCH (22:18)
[2023-03-07] MEDS: Metoprolol Tartrate 100 MG TAB PO SCH (22:18)
[2023-03-08 06:08] LABS: #Eosinphils 0.3 thou/uL (0.0-0.7); #Monocytes 0.4 thou/uL (0.11-0.59); %Basophils 0.3 % (0.0-1.0); %Lymphocytes 27.7 % (21.0-51.0); %Monocytes 6.3 % (0.0-10.0); %Neutrophils 60.5 % (42.0-75.0); Hematocrit 22.3 % (36.0-47.0); Hemoglobin 7.3 g/dL (12.0-16.0); Mean Corpuscular HGB CONC 32.7 g/dL (32.0-36.0); Mean Corpuscular Hemoglobin 33.2 pg (27.0-31.0); Mean Corpuscular Volume 101.4 fl (78.0-98.0); Mean Platelet Volume 11.3 fL (7.4-10.4); Platelet Count 144 10x3/uL (130-400); RBC Distribution Width 13.7 % (11.5-14.5); White Blood Cell (WBC) Count 6.7 10x3/uL (4.8-10.8)
[2023-03-08 08:07] LABS: Vancomycin, Random 16.9 ug/mL (See Comment)
[2023-03-08 08:16] VITALS: BP 122/75; TEMP 98.3
[2023-03-08 08:45] LABS: Anion Gap 16 mmol/L (10-20); Calcium 8.2 mg/dL (7.8-10.44); Carbon Dioxide 25 mmol/L (22-29); Chloride 99 mmol/L (98-107); Glucose 74 mg/dL (70-105); Potassium 4.4 mmol/L (3.5-5.1); Sodium 136 mmol/L (136-145)
[2023-03-08 09:08] LABS: Albumin 3.7 g/dL (3.5-5.0); BUN (Urea Nitrogen) 33 mg/dL (7.0-18.7); Calc. Creatinine Clearance 9 mL/min (70-130); Estimated GFR 6; Phosphorus 3.8 mg/dL (2.3-4.7)
[2023-03-08] MEDS: Sevelamer Carbonate 800 MG TAB PO SCH ×2 (10:32→13:34)
[2023-03-08] MEDS: Metoprolol Tartrate 100 MG TAB PO SCH (13:33)
[2023-03-08] MEDS: levETIRAcetam 500 MG TAB PO SCH (13:33)
[2023-03-08] MEDS: NIFEdipine XL 30 MG ER.TAB PO SCH (13:33)
[2023-03-08] MEDS ORDERED: Vancomycin HCl 500 MG in Sodium Chloride 0.9% 100 ML IVPB SCH (17:00)
== END 2023-03-08 16:48 | disposition home or self-care (01) ==
LOC: ERS 09:28 → T4-B 12:35
PROVIDERS: ADMIT Hospitalist; ATTEND Hospitalist
PROC: 0JPT0XZ Removal of Tunneled Vascular Access Device from Trunk Subcutaneous Tissue and Fascia, Open Approach (ICD-10-PCS; principal; 2023-03-08)
DX: T82.7XXA Infection and inflammatory reaction due to other cardiac and vascular devices, implants and grafts, initial encounter (principal); I12.0 Hypertensive chronic kidney disease with stage 5 chronic kidney disease or end stage renal disease; N18.6 End stage renal disease; Z99.2 Dependence on renal dialysis; G40.901 Epilepsy, unspecified, not intractable, with status epilepticus; Z79.899 Other long term (current) drug therapy; Y83.1 Surgical operation with implant of artificial internal device as the cause of abnormal reaction of the patient, or of later complication, without mention of misadventure at the time of the procedure; D63.1 Anemia in chronic kidney disease
CPT/HCPCS: 36415; 36416; 80053; 80069; 80202; 81001; 81025; 83605; 85025; 86704; 87040; 87340; 90935; 96365; 96375; G0257; G0378; J0171; J0692; J1200; J2001; J2250; J2405; J2704; J3370; J3490; S0020

== ENCOUNTER 2023-05-19 19:36 | Emergency (ER) | payer MEDICAID ==
[2023-05-19] MEDS ORDERED: Acetaminophen 500 MG TAB ONE (20:08)
[2023-05-19 20:15] LABS: #Eosinphils 0.3 thou/uL (0.0-0.7); #Monocytes 0.4 thou/uL (0.11-0.59); #Neutrophils 3.6 thou/uL (1.40-6.50); %Basophils 0.5 % (0.0-1.0); %Eosinophils 4.4 % (0.0-10.0); %Monocytes 6.7 % (0.0-10.0); %Neutrophils 58.2 % (42.0-75.0); Hematocrit 29.9 % (36.0-47.0); Hemoglobin 10.3 g/dL (12.0-16.0); Mean Corpuscular HGB CONC 34.4 g/dL (32.0-36.0); Mean Corpuscular Hemoglobin 34.6 pg (27.0-31.0); Mean Corpuscular Volume 100.3 fl (78.0-98.0); Mean Platelet Volume 10.9 fL (7.4-10.4); Platelet Count 180 10x3/uL (130-400); RBC Distribution Width 13.9 % (11.5-14.5); Red Blood Cell (RBC) Count 2.98 mill/uL (4.20-5.40); White Blood Cell (WBC) Count 6.2 10x3/uL (4.8-10.8)
[2023-05-19 20:24] LABS: BHCG - Serum Negative (NEGATIVE); Pregs Control Background? CLEAR/WHITE (CLR/WHITE); Pregs Control Bar Appear? YES (CONTROL BAR)
[2023-05-19 20:34] LABS: ALT (SGPT) 16 U/L (8-55); AST (SGOT) 20 U/L (5-34); Albumin 4.9 g/dL (3.5-5.0); Alkaline Phosphatase 80 U/L (40-110); Anion Gap 15 mmol/L (10-20); BUN (Urea Nitrogen) 7 mg/dL (7.0-18.7); Bilirubin, Total 0.7 mg/dL (0.2-1.2); Calc. Creatinine Clearance 0 mL/min (70-130); Calcium 9.8 mg/dL (7.8-10.44); Carbon Dioxide 32 mmol/L (22-29); Chloride 97 mmol/L (98-107); Estimated GFR 19; Globulin 3.4 g/dL (2.4-3.5); Glucose 78 mg/dL (70-105); Potassium 3.6 mmol/L (3.5-5.1); Protein, Total 8.3 g/dL (6.0-8.3); Sodium 140 mmol/L (136-145)
[2023-05-19] MEDS ORDERED: Ketorolac Tromethamine 30 MG (1 mL) VIAL ONE (21:41)
== END 2023-05-19 21:45 | disposition home or self-care (01) ==
LOC: ERS 19:36
DX: S09.90XA Unspecified injury of head, initial encounter (principal); I12.0 Hypertensive chronic kidney disease with stage 5 chronic kidney disease or end stage renal disease; N18.6 End stage renal disease; Z99.2 Dependence on renal dialysis; Z75.8 Other problems related to medical facilities and other health care; V43.62XA Car passenger injured in collision with other type car in traffic accident, initial encounter
CPT/HCPCS: 70450; 72125; 80053; 84703; 85025; 96374; J1885

== ENCOUNTER 2024-03-20 12:11 | Emergency (ER) | payer SELFPAY, MEDICAID ==
[2024-03-20] MEDS ORDERED: Ondansetron ODT 4 MG TAB ONE (12:44)
[2024-03-20] MEDS ORDERED: HYDROcodone/Acetaminophen 10/325 mg Tablet ONE (12:45)
[2024-03-20 13:21] LABS: #Basophils Less than 0.03 10x3/uL (0.0-0.2); %Basophils 0.1 % (0.0-1.0); %Eosinophils 0.4 % (0.0-10.0); %Lymphocytes 4.8 % (21.0-51.0); %Monocytes 5.6 % (0.0-10.0); %Neutrophils 88.7 % (42.0-75.0); Hematocrit 30.5 % (36.0-47.0); Hemoglobin 10.1 g/dL (12.0-16.0); Mean Corpuscular HGB CONC 33.1 g/dL (32.0-36.0); Mean Corpuscular Hemoglobin 34.5 pg (27.0-31.0); Mean Corpuscular Volume 104.1 fL (78.0-98.0); Mean Platelet Volume 11.5 fL (7.4-10.4); Platelet Count 135 10x3/uL (130-400); RBC Distribution Width 13.2 % (11.5-14.5); Red Blood Cell (RBC) Count 2.93 mill/uL (4.20-5.40)
[2024-03-20 13:56] LABS: ALT (SGPT) 12 U/L (8-55); AST (SGOT) 13 U/L (5-34); Albumin 3.9 g/dL (3.5-5.0); Anion Gap 17 mmol/L (10-20); BHCG - Serum Negative (NEGATIVE); BUN (Urea Nitrogen) 27 mg/dL (7.0-18.7); Bilirubin, Total 0.5 mg/dL (0.2-1.2); Calc. Creatinine Clearance 0 mL/min (70-130); Calcium 9.1 mg/dL (7.8-10.44); Carbon Dioxide 33 mmol/L (22-29); Chloride 93 mmol/L (98-107); Estimated GFR 8; Glucose 93 mg/dL (70-105); Lipase 18 U/L (8-78); Potassium 4.5 mmol/L (3.5-5.1); Pregs Control Background? CLEAR/WHITE (CLR/WHITE); Pregs Control Bar Appear? YES (CONTROL BAR); Protein, Total 7.9 g/dL (6.0-8.3); Sodium 138 mmol/L (136-145)
[2024-03-20 14:11] LABS: Alkaline Phosphatase 74 U/L (40-110)
== END 2024-03-20 14:48 | disposition home or self-care (01) ==
LOC: ERS 12:11
DX: B34.9 Viral infection, unspecified (principal); M54.9 Dorsalgia, unspecified; I12.0 Hypertensive chronic kidney disease with stage 5 chronic kidney disease or end stage renal disease; N18.6 End stage renal disease; Z99.2 Dependence on renal dialysis
CPT/HCPCS: 36415; 74176; 80053; 83690; 84703; 85025; Q0162